=== PATIENT | male | born 1980 | race Caucasian/White ===

== ENCOUNTER 2016-07-02 10:11 | Inpatient (IN) | payer OTHER ==
[2016-07-02 12:07] VITALS: BMI 29.8
--- NOTE | 2016-07-02 14:42 | HP ---
COWS - Scale Resting Pulse: 0= [place] 80 or Below Sweatin=Flushed/Facial Moisture Restless Observation: 0= Sits Still Pupil Size: 0= Normal to Room Light Bone or Joint Aches: 2= Severe Diffuse Aches Runny Nose/ Eye Tearin= Constantly Teary/Runny GI Upset > 30mins: 0= None Tremor Observation: 2= Slight Tremor Visible Yawning Observation: 2= >3x During Session Anxiety or Irritability: 2=Irritable/Anxious Goose Flesh Skin: 0=Smooth Skin COWS Score: 14 Admission ROS S - HPI Chief Complaint: I am here to detox. Allergies/Adverse Reactions: Allergies Allergy/AdvReac Type Severity Reaction Status Date / Time No Known Allergies Allergy Verified 07/02/16 13:52 History of Present Illness: pt is a 35yr old male with a history of heroin dependence seeking detox for treatment. Exam Limitations: No Limitations - Ebola screening Have you traveled outside of the country in the last 21 days: No Have you had contact with anyone from an Ebola affected area: No Have you been sick,other than usual withdrawal symptoms: No Do you have a fever: No - Review of Systems Constitutional: Chills, Diaphoresis, Night Sweats, Changes in sleep EENT: reports: Tearing, Nose Congestion Respiratory: reports: No Symptoms reported Cardiac: reports: No Symptoms Reported GI: reports: Diarrhea, Poor Appetite, Poor Fluid Intake : reports: No Symptoms Reported Musculoskeletal: reports: Back Pain, Joint Pain Integumentary: reports: Flushing, Sweating Neuro: reports: Tingling, Tremors Endocrine: reports: Excessive Sweating, Flushing, Intolerance to Cold, Intolerance to Heat Hematology: reports: No Symptoms Reported Psychiatric: reports: No Sypmtoms Reported, Judgement Intact, Mood/Affect Appropiate, Orientated x3, Agitated, Anxious Other Systems: Reviewed and Negative Patient History - Patient Medical History Hx Anemia: No Hx Asthma: No Hx Chronic Obstructive Pulmonary Disease (COPD): No Hx Cancer: No Hx Cardiac Disorders: No Hx Congestive Heart Failure: No Hx Hypertension: No Hx Hypercholesterolemia: No Hx Pacemaker: No HX Cerebrovascular Accident: No Hx Seizures: No Hx Diabetes: No Hx Gastrointestinal Disorders: No Hx Liver Disease: No Hx Genitourinary Disorders: No Hx Sexually Transmitted Disorders: No Hx Renal Disease (ESRD): No Hx Thyroid Disease: No Hx Human Immunodeficiency Virus (HIV): No (negative) Hx Hepatitis C: No (negative) Hx Depression: No Hx Suicide Attempt: No (denies) Hx Bipolar Disorder: No Hx Schizophrenia: No Other Medical History: PTSD - Patient Surgical History Past Surgical History: No Hx Neurologic Surgery: No Hx Cataract Extraction: No Hx Cardiac Surgery: No Hx Lung Surgery: No Hx Breast Surgery: No Hx Breast Biopsy: No Hx Abdominal Surgery: No Hx Appendectomy: No Hx Cholecystectomy: No Hx Genitourinary Surgery: No Hx Section: No Hx Orthopedic Surgery: No Anesthesia Reaction: No - PPD History Previous Implant?: Yes Documented Results: Negative w/o proof Implanted On Prior R Admission?: No PPD to be Administered?: Yes - Reproductive History Patient is a Female of Child Bearing Age (11 -55 yrs old): No - Smoking Cessation Smoking history: Current every day smoker Have you smoked in the past 12 months: Yes Aproximately how many cigarettes per day: 20 Hx Chewing Tobacco Use: No Initiated information on smoking cessation: Yes 'Breaking Loose' booklet given: 07/02/16 - Substance & Tx. History Hx Alcohol Use: Yes Hx Substance Use: Yes Substance Use Type: Cocaine, Heroin Hx Substance Use Treatment: Yes - Substances Abused Heroin Route: Inhalation Frequency: Daily Amount used: 6-10 bags Age of first use: 34 Date of Last Use: 07/01/16 Cocaine Route: Inhalation Frequency: Daily Amount used: $20-40 Age of first use: 21 Date of Last Use: 07/01/16 Family Disease History - Family Disease History Family Disease History: [place]: Grandparent (uncle), Other: Grandparent Admission Physical Exam S - Vital Signs Vital Signs: Vital Signs - 24 hr 07/02/16 12:05 Temperature 98.3 F Pulse Rate 67 Respiratory 18 Rate Blood Pressure 124/71 - Physical General Appearance: Yes: Appropriately Dressed, Moderate Distress, Tremorous, Irritable, Sweating, Anxious HEENTM: Yes: Nasal Congestion, Rhinorrhea Respiratory: Yes: Lungs Clear, Normal Breath Sounds, No Respiratory Distress Neck: Yes: No masses,lesions,Nodules Breast: Yes: Within Normal Limits Cardiology: Yes: Regular Rhythm, Regular Rate, S1, S2 Abdominal: Yes: Normal Bowel Sounds, Non Tender Genitourinary: Yes: Within Normal Limits Back: Yes: Normal Inspection Musculoskeletal: Yes: Back pain Extremities: Yes: Tremors Neurological: Yes: Fully Oriented, Alert Integumentary: Yes: Normal Color, Diaphoresis Lymphatic: Yes: Within Normal Limits - Diagnostic (1) Opioid dependence with withdrawal Current Visit: Yes Status: Chronic (2) Nicotine dependence Current Visit: Yes Status: Chronic Qualifiers: Nicotine product type: cigarettes Substance use status: uncomplicated Qualified Code(s): F17.210 - Nicotine dependence, cigarettes, uncomplicated Cleared for Admission [facility] - Detox or Rehab [facility] Level of Care: Medically Managed Detox Regimen/Protocol: Methadone [facility] Breath Alcohol Content Breath Alcohol Content: 0 Urine Drug Screen - Results Drug Screen Negative: No Urine Drug Screen Results: THC-Marijuana, KATYA-Cocaine, OPI-Opiates
[2016-07-02] MEDS ORDERED: MAG HYDROX/AL HYDROX/SIMETH 30 ML UNIT-DOSE CUP PO PRN (14:51)
[2016-07-02] MEDS ORDERED: guaiFENesin/D-METHORPHAN HB 10 ML UNIT-DOSE CUPS PO PRN (14:51)
[2016-07-02] MEDS ORDERED: MENTHOL/PHENOL 1 EACH UD MM PRN (14:51)
[2016-07-02] MEDS ORDERED: ACETAMINOPHEN 325 MG TABLET (FP) PO PRN (14:51)
[2016-07-02] MEDS ORDERED: IBUPROFEN 400 MG TABLET (FP) PO PRN (14:51)
[2016-07-02] MEDS ORDERED: diphenhydrAMINE HCL 50 MG CAPSULE PO PRN (14:51)
[2016-07-02] MEDS ORDERED: MAGNESIUM CITRATE 300 ML BOTTLE PO PRN (14:51)
[2016-07-02] MEDS ORDERED: hydrOXYzine PAMOATE 50 MG CAPSULE (FP) PO PRN (14:51)
[2016-07-02] MEDS ORDERED: LOPERAMIDE HCL 2 MG CAPSULE PO PRN (14:51)
[2016-07-02] MEDS ORDERED: P-EPHED 60MG/TRIPROLIDI 2.5MG TABLET PO PRN (14:51)
[2016-07-02] MEDS ORDERED: MAGNESIUM HYDROX 2400MG/30ML ORAL SUSPENSION 30 ML CUP PO PRN (14:51)
[2016-07-02] MEDS ORDERED: METHADONE HCL 10 MG TABLET (FOR DETOX USE ONLY) PO ONE ×2 (15:30→23:00)
[2016-07-02] MEDS: diazePAM 5 MG TABLET PO PRN ×2 (15:33→20:18)
[2016-07-02] MEDS: NICOTINE POLACRILEX 4 MG GUM BC PRN (20:19)
[2016-07-02] MEDS ORDERED: THIAMINE HCL 100 MG TABLET (FP) PO SCH (22:00)
[2016-07-03] MEDS ORDERED: METHADONE HCL 10 MG TABLET (FOR DETOX USE ONLY) PO ONE (10:00)
[2016-07-03] MEDS ORDERED: PRENATAL VITAMINS W/ FOLIC ACID TABLET (FP) PO SCH (10:00)
[2016-07-03] MEDS ORDERED: NICOTINE 21 MG/24 HOURS TOPICAL PATCH TD SCH (10:00)
[2016-07-03 10:12] LABS: MCH 30.1 pg (25.7-33.7); MCHC 33.2 g/dl (32.0-35.9); MEAN CELL VOLUME 90.6 fl (80-96); MEAN PLT VOLUME 6.9 fl (7.5-11.1); PLATELET COUNT 673 K/MM3 (134-434); RDW 13.3 % (11.9-15.9); WHITE BLOOD COUNT 6.7 K/mm3 (4.0-10.0)
[2016-07-03] MEDS: diazePAM 5 MG TABLET PO PRN ×2 (10:43→14:47)
[2016-07-03 11:18] LABS: ANION GAP 8 (8-16); CO2 30 mmol/L (21-32); COCKROFT - GAULT 148.46; CREATININE 0.9 mg/dL (0.7-1.3); GLUCOSE,RANDOM 96 mg/dL (74-106)
[2016-07-03 11:19] LABS: ALBUMIN 4.1 g/dl (3.4-5.0); ALK PHOS 67 U/L (45-117); BILIRUBIN,TOTAL 0.3 mg/dL (0.2-1.0); CALCIUM 9.6 mg/dL (8.5-10.1); SGOT/AST 13 U/L (15-37); SGPT/ALT 28 U/L (12-78); TOT PROT 7.4 g/dl (6.4-8.2)
--- NOTE | 2016-07-03 11:46 | EKG ---
Test Reason : Blood Pressure : / mmHG Vent. Rate : 075 BPM Atrial Rate : 075 BPM P-R Int : 148 ms QRS Dur : 096 ms QT Int : 392 ms P-R-T Axes : 050 035 031 degrees QTc Int : 437 ms NORMAL SINUS RHYTHM WITH SINUS ARRHYTHMIA NORMAL ECG NO PREVIOUS ECGS AVAILABLE Confirmed by MIKE MASON MD ([id number]) on 07/03/2016 11:45:31 AM Referred By: Confirmed By:MIKE MASON MD
--- NOTE | 2016-07-03 12:08 | PN ---
S COWS - Scale Resting Pulse: 0= [place] 80 or Below Sweatin= Chills/Flushing Restless Observation: 3= Extraneous Movement Pupil Size: 1= Pupils >than Normal Bone or Joint Aches: 2= Severe Diffuse Aches Runny Nose/ Eye Tearin= Runny Nose/Eyes GI Upset > 30mins: 3= Vomiting/Diarrhea Tremor Observation of Outstretched Hands: 2= Slight Tremor Visible Yawning Observation: 1= 1-2x During Session Anxiety or Irritability: 2=Irritable/Anxious Goose Flesh Skin: 0=Smooth Skin COWS Score: 17 S Progress Note (SOAP) Subjective: ALERT,IRRITABLE,ANXIOUS,INTERRUPTED SLEEP,PAIN IN THE BODY AND BACK,TREMOR Objective: 07/03/16 12:06 Vital Signs Temperature 96.9 F L 07/03/16 10:28 Pulse Rate 57 L 07/03/16 10:28 Respiratory Rate 16 07/03/16 10:28 Blood Pressure 123/73 07/03/16 10:28 O2 Sat by Pulse Oximetry (%) 07/03/16 12:07 EKG NSR,SINUS ARRHYTHMIA 07/03/16 12:07 Laboratory Last Values WBC 6.7 K/mm3 (4.0-10.0) 07/03/16 06:00 RBC 4.54 M/mm3 (4.00-5.60) 07/03/16 06:00 Hgb 13.7 GM/dL (11.7-16.9) 07/03/16 06:00 Hct 41.2 % (35.4-49) 07/03/16 06:00 MCV 90.6 fl (80-96) 07/03/16 06:00 MCHC 33.2 g/dl (32.0-35.9) 07/03/16 06:00 RDW 13.3 % (11.9-15.9) 07/03/16 06:00 Plt Count 673 K/MM3 (134-434) H 07/03/16 06:00 MPV 6.9 fl (7.5-11.1) L 07/03/16 06:00 Sodium 141 mmol/L (136-145) 07/03/16 06:00 Potassium 4.5 mmol/L (3.5-5.1) 07/03/16 06:00 Chloride 103 mmol/L (98-107) 07/03/16 06:00 Carbon Dioxide 30 mmol/L (21-32) 07/03/16 06:00 Anion Gap 8 (8-16) 07/03/16 06:00 BUN 11 mg/dL (7-18) 07/03/16 06:00 Creatinine 0.9 mg/dL (0.7-1.3) 07/03/16 06:00 Creat Clearance w eGFR > 60 (>60) 07/03/16 06:00 Random Glucose 96 mg/dL (74-106) 07/03/16 06:00 Calcium 9.6 mg/dL (8.5-10.1) 07/03/16 06:00 Total Bilirubin 0.3 mg/dL (0.2-1.0) 07/03/16 06:00 AST 13 U/L (15-37) L 07/03/16 06:00 ALT 28 U/L (12-78) 07/03/16 06:00 Alkaline Phosphatase 67 U/L (45-117) 07/03/16 06:00 Total Protein 7.4 g/dl (6.4-8.2) 07/03/16 06:00 Albumin 4.1 g/dl (3.4-5.0) 07/03/16 06:00 RPR Titer Nonreactive (NONREACTIVE) 07/03/16 06:00 Assessment: 07/03/16 12:08 WITHDRAWAL SYMPTOM Plan: CONTINUE DETOX
--- NOTE | 2016-07-03 13:22 | CONSULT ---
[facility] Psychiatric Consult - Data Date of interview: 07/03/16 Admission source: [facility] Identifying data: First admission to [facility] for this 35 y/o male seeking detox treatment for alcohol,heroin,cocaine and marijuana dependence.Patient is ,a father of one,domiciled and currently employed. Substance Abuse History: - Smoking Cessation. Smoking history: Current every day smoker. Have you smoked in the past 12 months: Yes. Aproximately how many cigarettes per day: 20. Hx Chewing Tobacco Use: No. Initiated information on smoking cessation: Yes. 'Breaking Loose' booklet given: 07/02/16. - Substance & Tx. History. Hx Alcohol Use: Yes. Hx Substance Use: Yes. Substance Use Type : Cocaine, Heroin. Hx Substance Use Treatment: Yes. - Substances Abused. Heroin. Route: Inhalation. Frequency: Daily. Amount used: 6-10 bags. Age of first use: 34. Date of Last Use: 07/01/16. Cocaine. Route: Inhalation. Frequency: Daily. Amount used: $20-40. Age of first use: 21. Date of Last Use : 07/01/16. Confirmed by patient. Medical History: History of gallstones and fracture of mandibles ( during combat in [place]). Psychiatric History: No reported history of psychiatric hospitalizations.Patient states that he was diagnosed with PTSD and treated with a combination of wellbutrin + adderall.Mr Galvan indicates that he stopped psychiatric OPD care ([facility] in [facility] in 2011.Never got back on psychotropic drugs.Patient denies history of suicide attempts. Physical/Sexual Abuse/Trauma History: Patient denies history of abuse.Served with the [employer] in [place] and [place] for 8 years.Left the in 2011.Wounded in combat.Traumatized by his war memories (nightmares and flashbacks). Additional Comment: Urine Drug Screen Results: THC-Marijuana, KATYA-Cocaine, OPI- Opiates.Noted. Mental Status Exam - Mental Status Exam Alert and Oriented to: Time, Place, Person Cognitive Function: Good Patient Appearance: Well Groomed (tattoo on right arm) Mood: Hopeful, Euthymic Affect: Appropriate, Normal Range Patient Behavior: Fatigued, Appropriate, Cooperative Speech Pattern: Clear Voice Loudness: Normal Thought Process: Goal Oriented Thought Disorder: Not Present Hallucinations: Denies Suicidal Ideation: Denies Homicidal Ideation: Denies Insight/Judgement: Poor Sleep: Poorly, Difficulty falling asleep (wants seroquel) Appetite: Good Muscle strength/Tone: Normal Gait/Station: Normal Psychiatric Findings - Problem List ([place] 1, 2,3) (1) Opioid dependence with withdrawal Current Visit: Yes Status: Acute (2) Nicotine dependence Current Visit: Yes Status: Acute Qualifiers: Nicotine product type: cigarettes Substance use status: uncomplicated Qualified Code(s): F17.210 - Nicotine dependence, cigarettes, uncomplicated (3) Cocaine dependence Current Visit: Yes Status: Acute (4) Marijuana dependence Current Visit: Yes Status: Acute (5) Alcohol abuse Current Visit: Yes Status: Acute (6) Insomnia Current Visit: Yes Status: Acute - Initial Treatment Plan Initial Treatment Plan: Psychoeducation.Detoxification in progress.Seroquel ( patient's choice) 50 mg po hs.Side effects/benefits discussed with the patient.He is in agreement with this careplan.Observation.
[2016-07-03 13:35] VITALS: BP 126/83; PULSE 60; TEMP 97.5
[2016-07-03] MEDS: NICOTINE POLACRILEX 4 MG GUM BC PRN (14:20)
[2016-07-03 14:45] LABS: URINE APPEARANCE CLEAR; URINE BILIRUBIN NEGATIVE (NEGATIVE); URINE BLOOD NEGATIVE (NEGATIVE); URINE COLOR LTYELLOW; URINE GLUCOSE (UA) NEGATIVE (NEGATIVE); URINE KETONE NEGATIVE (NEGATIVE); URINE LEUK ESTERASE NEGATIVE (NEGATIVE); URINE NITRITE NEGATIVE (NEGATIVE); URINE PROTEIN NEGATIVE (NEGATIVE); URINE UROBILINOGEN NEGATIVE E.U./dl (0.2-1.0)
--- NOTE | 2016-07-03 16:21 | PN ---
[facility] Progress Note Note: ADDENDUM PATIENT DID NOT WANT TO COMPLETE TREATMENT,SEEN BY COUNSELOR,STATED HE HAS TO GO TO WORK, SIGNED RELEASE AMA,DID NOT WANT TO WAIT
--- NOTE | 2016-07-03 16:27 | DS ---
[facility] Detox Discharge Summary Admission Date: 07/02/16 Discharge Date: 07/03/16 - History Present History: Cocaine Dependence, Opioid Dependence Additional Comments: PATIENT DID NOT WANT TO COMPLETE TREATMENT,SEEN BY COUNSELOR,STATED HE HAS TO GO TO WORK,SIGNED RELEASE AMA,DID NOT WANT TO WAIT Pertinent Past History: NICOTINE DEPENDENCE - Physical Exam Results Vital Signs: Vital Signs Temperature 97.5 F L 07/03/16 13:34 Pulse Rate 60 07/03/16 13:34 Respiratory Rate 18 07/03/16 13:34 Blood Pressure 126/83 07/03/16 13:34 O2 Sat by Pulse Oximetry (%) Pertinent Admission Physical Exam Findings: WITHDRAWAL SYMPTOM - Medication Discharge Medications: Ambulatory Orders Quetiapine Fumarate [Seroquel -] 50 mg PO HS #30 tablet 07/03/16 - AMA Did Patient Leave Against Medical Advice: Yes
[2016-07-03] MEDS ORDERED: QUEtiapine FUMARATE 50 MG TABLET PO SCH (22:00)
[2016-07-04] MEDS ORDERED: METHADONE HCL 5 MG TABLET (FOR DETOX USE ONLY) PO ONE (10:00)
[2016-07-05] MEDS ORDERED: METHADONE HCL 5 MG TABLET (FOR DETOX USE ONLY) PO ONE (10:00)
[2016-07-06] MEDS ORDERED: METHADONE HCL 10 MG TABLET (FOR DETOX USE ONLY) PO ONE (10:00)
[2016-07-07] MEDS ORDERED: METHADONE HCL 5 MG TABLET (FOR DETOX USE ONLY) PO ONE (06:00)
== END 2016-07-03 16:20 | disposition left against medical advice (07) | DRG 770 ==
LOC: YASAS 10:11 → Y6N 14:52
PROVIDERS: ADMIT Internal Medicine; ATTEND Internal Medicine
PROC: HZ2ZZZZ Detoxification Services for Substance Abuse Treatment (ICD-10-PCS; principal; 2016-07-02)
DX: F11.23 Opioid dependence with withdrawal (principal); F14.20 Cocaine dependence, uncomplicated; F12.20 Cannabis dependence, uncomplicated; F17.210 Nicotine dependence, cigarettes, uncomplicated; G47.00 Insomnia, unspecified; I49.9 Cardiac arrhythmia, unspecified
CPT/HCPCS: 36415; 80053; 81003; 85027; 86593; 93005; 93010

== ENCOUNTER 2016-09-27 08:31 | Inpatient (IN) | payer OTHER ==
[2016-09-27 09:16] VITALS: BMI 30.2
--- NOTE | 2016-09-27 13:02 | HP ---
COWS - Scale Resting Pulse: 0= [place] 80 or Below Sweatin=Flushed/Facial Moisture Restless Observation: 1= Difficult to Sit Still Pupil Size: 0= Normal to Room Light Bone or Joint Aches: 2= Severe Diffuse Aches Runny Nose/ Eye Tearin= Runny Nose/Eyes GI Upset > 30mins: 2= Nausea/Diarrhea Tremor Observation: 2= Slight Tremor Visible Yawning Observation: 1= 1-2x During Session Anxiety or Irritability: 2=Irritable/Anxious Goose Flesh Skin: 3=Piloerection COWS Score: 17 Admission ROS S - HPI Chief Complaint: I am here to get cleaned. Allergies/Adverse Reactions: Allergies Allergy/AdvReac Type Severity Reaction Status Date / Time No Known Allergies Allergy Verified 09/27/16 09:57 History of Present Illness: pt is a 35yr old male with a history of heroin and cocaine dependence seeking detox for treatment. Exam Limitations: No Limitations - Ebola screening Have you traveled outside of the country in the last 21 days: No Have you had contact with anyone from an Ebola affected area: No Have you been sick,other than usual withdrawal symptoms: No Do you have a fever: No - Review of Systems Constitutional: Chills, Diaphoresis, Night Sweats, Changes in sleep EENT: reports: Tearing, Nose Congestion Respiratory: reports: No Symptoms reported Cardiac: reports: No Symptoms Reported GI: reports: Diarrhea, Poor Appetite, Poor Fluid Intake : reports: No Symptoms Reported Musculoskeletal: reports: Muscle Pain Integumentary: reports: Flushing, Sweating Neuro: reports: Tingling, Tremors Endocrine: reports: Excessive Sweating, Flushing, Intolerance to Cold, Intolerance to Heat Hematology: reports: No Symptoms Reported Psychiatric: reports: Judgement Intact, Mood/Affect Appropiate, Orientated x3, Agitated, Anxious Other Systems: Reviewed and Negative Patient History - Patient Medical History Hx Anemia: No Hx Asthma: No Hx Chronic Obstructive Pulmonary Disease (COPD): No Hx Cancer: No Hx Cardiac Disorders: No Hx Congestive Heart Failure: No Hx Hypertension: No Hx Hypercholesterolemia: No Hx Pacemaker: No HX Cerebrovascular Accident: No Hx Seizures: No Hx Dementia: No Hx Diabetes: No Hx Gastrointestinal Disorders: No Hx Liver Disease: No Hx Genitourinary Disorders: No Hx Sexually Transmitted Disorders: No Hx Renal Disease (ESRD): No Hx Thyroid Disease: No Hx Human Immunodeficiency Virus (HIV): No (negative) Hx Hepatitis C: No (negative) Hx Depression: No Hx Suicide Attempt: No (denies) Hx Bipolar Disorder: No Hx Schizophrenia: No - Patient Surgical History Past Surgical History: No Hx Neurologic Surgery: No Hx Cataract Extraction: No Hx Cardiac Surgery: No Hx Lung Surgery: No Hx Breast Surgery: No Hx Breast Biopsy: No Hx Abdominal Surgery: No Hx Appendectomy: No Hx Cholecystectomy: No Hx Genitourinary Surgery: No Hx Section: No Hx Orthopedic Surgery: No Anesthesia Reaction: No - PPD History Previous Implant?: Yes Documented Results: Negative w/proof Implanted On Prior [facility] Admission?: Yes PPD to be Administered?: Yes - Reproductive History Patient is a Female of Child Bearing Age (11 -55 yrs old): No - Smoking Cessation Smoking history: Current every day smoker Have you smoked in the past 12 months: Yes Aproximately how many cigarettes per day: 20 Hx Chewing Tobacco Use: No Initiated information on smoking cessation: Yes 'Breaking Loose' booklet given: 09/27/16 - Substance & Tx. History Hx Alcohol Use: No Hx Substance Use: Yes Substance Use Type: Cocaine, Heroin, Marijuana Hx Substance Use Treatment: Yes (last detox at [facility] 02/2016) - Substances Abused Heroin Route: Inhalation Frequency: Daily Amount used: 5 BAGS Age of first use: 34 Date of Last Use: 09/26/16 Cocaine Route: Inhalation Frequency: 1-2 times per week Amount used: 1 GRAM Age of first use: 21 Date of Last Use: 09/26/16 Marijuana/Hashish Route: Smoking Frequency: 1-3 times last 30 days Amount used: 1 JOINT Age of first use: 13 Date of Last Use: 09/26/16 Family Disease History - Family Disease History Family Disease History: [place]: Grandparent (uncle), Other: Grandparent Admission Physical Exam B[facility] - Vital Signs Vital Signs: Vital Signs - 24 hr 09/27/16 09:13 Temperature 97.1 F L Pulse Rate 69 Respiratory 20 Rate Blood Pressure 120/78 - Physical General Appearance: Yes: Appropriately Dressed, Moderate Distress, Tremorous, Irritable, Sweating, Anxious HEENTM: Yes: Normal Voice, Nasal Congestion, Rhinorrhea Respiratory: Yes: Lungs Clear, Normal Breath Sounds, No Respiratory Distress Neck: Yes: No masses,lesions,Nodules Breast: Yes: Within Normal Limits Cardiology: Yes: Regular Rhythm, Regular Rate, S1, S2 Abdominal: Yes: Normal Bowel Sounds, Non Tender Genitourinary: Yes: Within Normal Limits Back: Yes: Normal Inspection Musculoskeletal: Yes: full range of Motion, Gait Steady, Back pain Extremities: Yes: Normal Capillary Refill, Normal Inspection, Non-Tender, Tremors Neurological: Yes: Fully Oriented, Alert, Normal Response Integumentary: Yes: Normal Color, Diaphoresis Lymphatic: Yes: Within Normal Limits - Diagnostic (1) Cocaine dependence Current Visit: Yes Status: Chronic Qualifiers: Substance use status: uncomplicated Qualified Code(s): F14.20 - Cocaine dependence, uncomplicated (2) Insomnia Current Visit: No Status: Acute (3) Marijuana dependence Current Visit: Yes Status: Chronic (4) Nicotine dependence Current Visit: Yes Status: Chronic Qualifiers: Nicotine product type: cigarettes Substance use status: uncomplicated Qualified Code(s): F17.210 - Nicotine dependence, cigarettes, uncomplicated (5) Opioid dependence with withdrawal Current Visit: Yes Status: Chronic Cleared for Admission [facility] - Detox or Rehab [facility] Level of Care: Medically Managed Detox Regimen/Protocol: Methadone [facility] Breath Alcohol Content Breath Alcohol Content: 0 Urine Drug Screen - Results Drug Screen Negative: No Urine Drug Screen Results: THC-Marijuana, KATYA-Cocaine, OPI-Opiates
[2016-09-27] MEDS ORDERED: LOPERAMIDE HCL 2 MG CAPSULE PO PRN (13:04)
[2016-09-27] MEDS ORDERED: MAGNESIUM HYDROX 2400MG/30ML ORAL SUSPENSION 30 ML CUP PO PRN (13:04)
[2016-09-27] MEDS ORDERED: MAGNESIUM CITRATE 300 ML BOTTLE PO PRN (13:04)
[2016-09-27] MEDS ORDERED: guaiFENesin/D-METHORPHAN HB 10 ML UNIT-DOSE CUPS PO PRN (13:04)
[2016-09-27] MEDS ORDERED: MENTHOL/PHENOL 1 EACH UD MM PRN (13:04)
[2016-09-27] MEDS ORDERED: ACETAMINOPHEN 325 MG TABLET (FP) PO PRN (13:04)
[2016-09-27] MEDS ORDERED: MAG HYDROX/AL HYDROX/SIMETH 30 ML UNIT-DOSE CUP PO PRN (13:04)
[2016-09-27] MEDS ORDERED: P-EPHED 60MG/TRIPROLIDI 2.5MG TABLET PO PRN (13:04)
[2016-09-27] MEDS ORDERED: METHADONE HCL 10 MG TABLET (FOR DETOX USE ONLY) PO ONE ×2 (13:52→23:00)
[2016-09-27] MEDS: diazePAM 5 MG TABLET PO PRN ×2 (14:33→19:21)
[2016-09-27] MEDS: NICOTINE POLACRILEX 4 MG GUM BUC PRN ×2 (14:38→19:21)
[2016-09-27 17:22] LABS: MCH 31.4 pg (25.7-33.7); MCHC 34.7 g/dl (32.0-35.9); MEAN CELL VOLUME 90.3 fl (80-96); MEAN PLT VOLUME 7.3 fl (7.5-11.1); PLATELET COUNT 399 K/MM3 (134-434); RDW 14.4 % (11.9-15.9); WHITE BLOOD COUNT 6.2 K/mm3 (4.0-10.0)
[2016-09-27 17:26] LABS: PH,URINE 5.5 (5.0-8.0); URINE APPEARANCE CLEAR; URINE BILIRUBIN NEGATIVE (NEGATIVE); URINE BLOOD NEGATIVE (NEGATIVE); URINE COLOR LT. YELLOW; URINE GLUCOSE (UA) NEGATIVE (NEGATIVE); URINE KETONE NEGATIVE (NEGATIVE); URINE LEUK ESTERASE NEGATIVE (NEGATIVE); URINE NITRITE NEGATIVE (NEGATIVE); URINE PROTEIN NEGATIVE (NEGATIVE); URINE UROBILINOGEN 0.2 mg/dL (0.2-1.0)
[2016-09-27 17:42] LABS: ALBUMIN 4.2 g/dl (3.4-5.0); ALK PHOS 55 U/L (45-117); ANION GAP 5 (8-16); BILIRUBIN,TOTAL 0.5 mg/dL (0.2-1.0); CALCIUM 9.3 mg/dL (8.5-10.1); CO2 31 mmol/L (21-32); CREATININE 0.8 mg/dL (0.7-1.3); GLUCOSE,RANDOM 94 mg/dL (74-106); SGPT/ALT 19 U/L (12-78); TOT PROT 6.6 g/dl (6.4-8.2)
[2016-09-27 17:45] LABS: SGOT/AST 3 U/L (15-37)
[2016-09-27] MEDS: THIAMINE HCL 100 MG TABLET (FP) PO SCH (22:38)
[2016-09-27] MEDS: diphenhydrAMINE HCL 50 MG CAPSULE PO PRN (22:38)
[2016-09-28] MEDS ORDERED: METHADONE HCL 10 MG TABLET (FOR DETOX USE ONLY) PO ONE (10:00)
--- NOTE | 2016-09-28 10:32 | EKG ---
Test Reason : Blood Pressure : / mmHG Vent. Rate : 051 BPM Atrial Rate : 051 BPM P-R Int : 158 ms QRS Dur : 086 ms QT Int : 410 ms P-R-T Axes : 037 026 017 degrees QTc Int : 377 ms SINUS BRADYCARDIA OTHERWISE NORMAL ECG WHEN COMPARED WITH ECG OF 02-JUL-2016 14:43, QT HAS SHORTENED Confirmed by ALISHA CORREA MD ([id number]) on 09/28/2016 10:32:18 AM Referred By: Confirmed By:ALISHA CORREA MD
[2016-09-28] MEDS: PRENATAL VITAMINS W/ FOLIC ACID TABLET (FP) PO SCH (11:07)
[2016-09-28] MEDS: diazePAM 5 MG TABLET PO PRN ×3 (11:09→21:35)
[2016-09-28] MEDS: NICOTINE POLACRILEX 4 MG GUM BUC PRN (11:09)
[2016-09-28] MEDS: NICOTINE 21 MG/24 HOURS TOPICAL PATCH TD SCH (11:10)
--- NOTE | 2016-09-28 11:36 | PN ---
[facility] COWS - Scale Resting Pulse: 0= [place] 80 or Below Sweatin=Flushed/Facial Moisture Restless Observation: 1= Difficult to Sit Still Pupil Size: 0= Normal to Room Light Bone or Joint Aches: 2= Severe Diffuse Aches Runny Nose/ Eye Tearin= Runny Nose/Eyes GI Upset > 30mins: 1= Stomach Cramp Tremor Observation of Outstretched Hands: 2= Slight Tremor Visible Yawning Observation: 2= >3x During Session Anxiety or Irritability: 2=Irritable/Anxious Goose Flesh Skin: 0=Smooth Skin COWS Score: 14 S Progress Note (SOAP) Subjective: chills sweats shakes interrupted sleep agitation Objective: 09/28/16 11:35 Vital Signs Temperature 97.9 F 09/28/16 10:00 Pulse Rate 58 L 09/28/16 10:00 Respiratory Rate 20 09/28/16 10:00 Blood Pressure 124/77 09/28/16 10:00 O2 Sat by Pulse Oximetry (%) Laboratory Tests 09/27/16 09/27/16 09/27/16 14:00 14:00 14:00 WBC 6.2 RBC 4.07 Hgb 12.8 Hct 36.8 MCV 90.3 MCH 31.4 MCHC 34.7 RDW 14.4 Plt Count 399 D MPV 7.3 L Sodium 142 Potassium 4.0 Chloride 106 Carbon Dioxide 31 Anion Gap 5 L BUN 17 D Creatinine 0.8 Creat Clearance w eGFR > 60 Random Glucose 94 Calcium 9.3 Total Bilirubin 0.5 D AST 3 L D ALT 19 D Alkaline Phosphatase 55 Total Protein 6.6 Albumin 4.2 Urine Color Lt. yellow Urine Appearance Clear Urine pH 5.5 Ur Specific [place] >= 1.030 H Urine Protein Negative Urine Glucose (UA) Negative Urine Ketones Negative Urine Blood Negative Urine Nitrite Negative Urine Bilirubin Negative Urine Urobilinogen 0.2 Ur Leukocyte Esterase Negative RPR Titer 09/27/16 14:00 WBC RBC Hgb Hct MCV MCH MCHC RDW Plt Count MPV Sodium Potassium Chloride Carbon Dioxide Anion Gap BUN Creatinine Creat Clearance w eGFR Random Glucose Calcium Total Bilirubin AST ALT Alkaline Phosphatase Total Protein Albumin Urine Color Urine Appearance Urine pH Ur Specific [place] Urine Protein Urine Glucose (UA) Urine Ketones Urine Blood Urine Nitrite Urine Bilirubin Urine Urobilinogen Ur Leukocyte Esterase RPR Titer Nonreactive awake/alert ambulating no acute distress Assessment: 09/28/16 11:36 withdrawal sx Plan: continue detox increase fluids
[2016-09-28] MEDS: hydrOXYzine PAMOATE 50 MG CAPSULE (FP) PO PRN (13:49)
[2016-09-28] MEDS: THIAMINE HCL 100 MG TABLET (FP) PO SCH (21:35)
[2016-09-28] MEDS: diphenhydrAMINE HCL 50 MG CAPSULE PO PRN (21:36)
[2016-09-29] MEDS: diazePAM 5 MG TABLET PO PRN ×4 (09:15→22:19)
[2016-09-29] MEDS ORDERED: METHADONE HCL 5 MG TABLET (FOR DETOX USE ONLY) PO ONE (10:00)
[2016-09-29] MEDS: PRENATAL VITAMINS W/ FOLIC ACID TABLET (FP) PO SCH (10:19)
[2016-09-29] MEDS: NICOTINE POLACRILEX 4 MG GUM BUC PRN (10:20)
[2016-09-29] MEDS: NICOTINE 21 MG/24 HOURS TOPICAL PATCH TD SCH (10:20)
[2016-09-29] MEDS: hydrOXYzine PAMOATE 50 MG CAPSULE (FP) PO PRN ×2 (11:02→19:45)
--- NOTE | 2016-09-29 14:00 | PN ---
[facility] COWS - Scale Resting Pulse: 0= [place] 80 or Below Sweatin= Chills/Flushing Restless Observation: 3= Extraneous Movement Pupil Size: 1= Pupils >than Normal Bone or Joint Aches: 2= Severe Diffuse Aches Runny Nose/ Eye Tearin= Nasal Congestion GI Upset > 30mins: 2= Nausea/Diarrhea Tremor Observation of Outstretched Hands: 2= Slight Tremor Visible Yawning Observation: 1= 1-2x During Session Anxiety or Irritability: 2=Irritable/Anxious Goose Flesh Skin: 0=Smooth Skin COWS Score: 15 BHS Progress Note (SOAP) Subjective: alert,irritable,anxious,interrupted sleep,pain in the body and back Objective: 09/29/16 13:58 Vital Signs Temperature 97.7 F 09/29/16 09:57 Pulse Rate 67 09/29/16 09:57 Respiratory Rate 18 09/29/16 09:57 Blood Pressure 119/86 09/29/16 09:57 O2 Sat by Pulse Oximetry (%) ekg sinus bradycardia 51/min no chest pain,no sob,no dizziness 09/29/16 13:59 Laboratory Last Values WBC 6.2 K/mm3 (4.0-10.0) 09/27/16 14:00 RBC 4.07 M/mm3 (4.00-5.60) 09/27/16 14:00 Hgb 12.8 GM/dL (11.7-16.9) 09/27/16 14:00 Hct 36.8 % (35.4-49) 09/27/16 14:00 MCV 90.3 fl (80-96) 09/27/16 14:00 MCH 31.4 pg (25.7-33.7) 09/27/16 14:00 MCHC 34.7 g/dl (32.0-35.9) 09/27/16 14:00 RDW 14.4 % (11.9-15.9) 09/27/16 14:00 Plt Count 399 K/MM3 (134-434) D 09/27/16 14:00 MPV 7.3 fl (7.5-11.1) L 09/27/16 14:00 Sodium 142 mmol/L (136-145) 09/27/16 14:00 Potassium 4.0 mmol/L (3.5-5.1) 09/27/16 14:00 Chloride 106 mmol/L (98-107) 09/27/16 14:00 Carbon Dioxide 31 mmol/L (21-32) 09/27/16 14:00 Anion Gap 5 (8-16) L 09/27/16 14:00 BUN 17 mg/dL (7-18) D 09/27/16 14:00 Creatinine 0.8 mg/dL (0.7-1.3) 09/27/16 14:00 Creat Clearance w eGFR > 60 (>60) 09/27/16 14:00 Random Glucose 94 mg/dL (74-106) 09/27/16 14:00 Calcium 9.3 mg/dL (8.5-10.1) 09/27/16 14:00 Total Bilirubin 0.5 mg/dL (0.2-1.0) D 09/27/16 14:00 AST 3 U/L (15-37) L D 09/27/16 14:00 ALT 19 U/L (12-78) D 09/27/16 14:00 Alkaline Phosphatase 55 U/L (45-117) 09/27/16 14:00 Total Protein 6.6 g/dl (6.4-8.2) 09/27/16 14:00 Albumin 4.2 g/dl (3.4-5.0) 09/27/16 14:00 Urine Color Lt. yellow 09/27/16 14:00 Urine Appearance Clear 09/27/16 14:00 Urine pH 5.5 (5.0-8.0) 09/27/16 14:00 Ur Specific [place] >= 1.030 (1.005-1.025) H 09/27/16 14:00 Urine Protein Negative (NEGATIVE) 09/27/16 14:00 Urine Glucose (UA) Negative (NEGATIVE) 09/27/16 14:00 Urine Ketones Negative (NEGATIVE) 09/27/16 14:00 Urine Blood Negative (NEGATIVE) 09/27/16 14:00 Urine Nitrite Negative (NEGATIVE) 09/27/16 14:00 Urine Bilirubin Negative (NEGATIVE) 09/27/16 14:00 Urine Urobilinogen 0.2 mg/dL (0.2-1.0) 09/27/16 14:00 Ur Leukocyte Esterase Negative (NEGATIVE) 09/27/16 14:00 RPR Titer Nonreactive (NONREACTIVE) 09/27/16 14:00 Assessment: 09/29/16 13:59 withdrawal symptom Plan: continue detox
[2016-09-29] MEDS: THIAMINE HCL 100 MG TABLET (FP) PO SCH (22:19)
[2016-09-29] MEDS: diphenhydrAMINE HCL 50 MG CAPSULE PO PRN (22:19)
[2016-09-29] MEDS: IBUPROFEN 400 MG TABLET (FP) PO PRN (23:08)
[2016-09-30] MEDS: diazePAM 5 MG TABLET PO PRN ×2 (05:47→10:13)
[2016-09-30] MEDS ORDERED: METHADONE HCL 5 MG TABLET (FOR DETOX USE ONLY) PO ONE (10:00)
[2016-09-30] MEDS: PRENATAL VITAMINS W/ FOLIC ACID TABLET (FP) PO SCH (10:13)
[2016-09-30] MEDS: NICOTINE POLACRILEX 4 MG GUM BUC PRN ×2 (10:14→18:33)
[2016-09-30] MEDS: NICOTINE 21 MG/24 HOURS TOPICAL PATCH TD SCH (10:14)
--- NOTE | 2016-09-30 10:27 | PN ---
S Progress Note (SOAP) Subjective: ALERT,IRRITABLE,ANXIOUS,INTERRUPTED SLEEP,PAIN IN THE BODY AND BACK Objective: 09/30/16 10:25 Vital Signs Temperature 98.1 F 09/30/16 06:25 Pulse Rate 59 L 09/30/16 06:25 Respiratory Rate 16 09/30/16 06:25 Blood Pressure 102/58 09/30/16 06:25 O2 Sat by Pulse Oximetry (%) Assessment: 09/30/16 10:26 WITHDRAWAL SYMPTOM Plan: CONTINUE DETOX,MEDICATION ADJUSTED,DISCHARGE IN AM AT 0700
[2016-09-30] MEDS: IBUPROFEN 400 MG TABLET (FP) PO PRN ×2 (12:27→22:14)
[2016-09-30] MEDS: hydrOXYzine PAMOATE 50 MG CAPSULE (FP) PO PRN (18:32)
[2016-09-30] MEDS: THIAMINE HCL 100 MG TABLET (FP) PO SCH (22:14)
[2016-09-30] MEDS: diphenhydrAMINE HCL 50 MG CAPSULE PO PRN (22:14)
[2016-10-01] MEDS ORDERED: METHADONE HCL 5 MG TABLET (FOR DETOX USE ONLY) PO ONE (06:00)
[2016-10-01 06:54] VITALS: BP 119/74; PULSE 68; TEMP 96.8
--- NOTE | 2016-10-01 08:16 | DS ---
[facility] Detox Discharge Summary Admission Date: 09/27/16 Discharge Date: 10/01/16 - History Present History: Cocaine Dependence, Opioid Dependence, Sedative Dependence Additional Comments: FOLLOW UP WITH AFTER CARE PROGRAM ARRANGEMENT Pertinent Past History: INSOMNIA NICOTINE DEPENDENCE CHOLELITHIASIS - Physical Exam Results Vital Signs: Vital Signs Temperature 96.8 F L 10/01/16 06:54 Pulse Rate 68 10/01/16 06:54 Respiratory Rate 16 10/01/16 06:54 Blood Pressure 119/74 10/01/16 06:54 O2 Sat by Pulse Oximetry (%) - Treatment Hospital Course: Detox Protocol Followed, Detoxed Safely, Responded well, Discharged Condition Good Patient has Accepted a Rehab Referral to: DECLINED - Medication Discharge Medications: Ambulatory Orders NK [No Known Home Medication] 09/27/16 - Diagnosis (1) Cholelithiasis Status: Acute (2) Insomnia Status: Acute (3) Cocaine dependence Status: Chronic Qualifiers: Substance use status: uncomplicated Qualified Code(s): F14.20 - Cocaine dependence, uncomplicated (4) Marijuana dependence Status: Chronic (5) Opioid dependence with withdrawal Status: Chronic - AMA Did Patient Leave Against Medical Advice: No
[2016-10-01] MEDS ORDERED: METHADONE HCL 10 MG TABLET (FOR DETOX USE ONLY) PO ONE (10:00)
[2016-10-02] MEDS ORDERED: METHADONE HCL 5 MG TABLET (FOR DETOX USE ONLY) PO ONE (06:00)
== END 2016-10-01 06:35 | disposition home or self-care (01) | DRG 773 ==
LOC: YASAS 08:31 → Y6N 13:18
PROVIDERS: ADMIT Internal Medicine; ATTEND Internal Medicine
PROC: HZ2ZZZZ Detoxification Services for Substance Abuse Treatment (ICD-10-PCS; principal; 2016-09-27)
DX: F11.23 Opioid dependence with withdrawal (principal); F14.20 Cocaine dependence, uncomplicated; F12.20 Cannabis dependence, uncomplicated; F17.210 Nicotine dependence, cigarettes, uncomplicated; G47.00 Insomnia, unspecified; R00.1 Bradycardia, unspecified; K80.20 Calculus of gallbladder without cholecystitis without obstruction
CPT/HCPCS: 36415; 80053; 81003; 85027; 86593; 93005; 93010

== ENCOUNTER 2016-10-02 10:59 | Inpatient (IN) | payer OTHER ==
[2016-10-02 12:18] VITALS: BMI 30.1
--- NOTE | 2016-10-02 13:53 | HP ---
LISA ARANDA Rehab Assess/Revision - Admission History Admitted to Rehab from: [facility] Date of Admission to Rehab: 10/02/16 - Vital signs Vital Signs: Vital Signs Period Temp Pulse Resp BP Sys/Jaramillo Pulse Ox Last 24 Hr 96.1 F 90 18 128/79 - Findings Detox History & Physical reviewed: Yes Concur with findings: Yes Comments/Additional Findings: for rehab as protocol
[2016-10-02] MEDS ORDERED: LOPERAMIDE HCL 2 MG CAPSULE PO PRN (13:54)
[2016-10-02] MEDS ORDERED: MENTHOL/PHENOL 1 EACH UD MM PRN (13:54)
[2016-10-02] MEDS ORDERED: diphenhydrAMINE HCL 50 MG CAPSULE PO PRN (13:54)
[2016-10-02] MEDS ORDERED: guaiFENesin/D-METHORPHAN HB 10 ML UNIT-DOSE CUPS PO PRN (13:54)
[2016-10-02] MEDS ORDERED: MAG HYDROX/AL HYDROX/SIMETH 30 ML UNIT-DOSE CUP PO PRN (13:54)
[2016-10-02] MEDS ORDERED: MAGNESIUM CITRATE 300 ML BOTTLE PO PRN (13:54)
[2016-10-02] MEDS ORDERED: MAGNESIUM HYDROX 2400MG/30ML ORAL SUSPENSION 30 ML CUP PO PRN (13:54)
[2016-10-02] MEDS ORDERED: P-EPHED 60MG/TRIPROLIDI 2.5MG TABLET PO PRN (13:54)
[2016-10-02] MEDS: NICOTINE 21 MG/24 HOURS TOPICAL PATCH TD SCH (18:25)
[2016-10-02] MEDS: THIAMINE HCL 100 MG TABLET (FP) PO SCH (21:30)
[2016-10-02] MEDS: IBUPROFEN 400 MG TABLET (FP) PO PRN (21:31)
[2016-10-02] MEDS: hydrOXYzine PAMOATE 50 MG CAPSULE (FP) PO PRN (21:31)
[2016-10-03] MEDS: NICOTINE 21 MG/24 HOURS TOPICAL PATCH TD SCH (10:06)
[2016-10-03] MEDS: IBUPROFEN 400 MG TABLET (FP) PO PRN (10:06)
[2016-10-03] MEDS: PRENATAL VITAMINS W/ FOLIC ACID TABLET (FP) PO SCH (10:06)
--- NOTE | 2016-10-03 11:34 | HP ---
Psychiatrist Admission - Data Date of interview: 10/03/16 Identifying data: this is the first 5N inpatient rehabilitation admission for this 35 year old male , he is ,a father of one, domiciled and currently employed. Medical History: History of gallstones and fracture of mandibles ( during combat in [place]). Smokes cigarettes 20 a day. Psychiatric History: Patient reports no history of psychaitric hospitalizations , was diagnosed as PTSD and ADD while returning back from his service, was treated with Wellbutrin and Adderall. Reports he was under the psychiatric [facility]PD care ([facility] in [facility]) in 2011, stopped and never got back on psychotropic drugs. Patient denies history of suicide attempts, has insomnia. Physical/Sexual Abuse/Trauma History: Denies history of abuse.Served with [employer] for 8 years, Wounded in combat, traumatized by war memories, reports sometimes he has nightmares and falshbacks. Vital Signs: Vital Signs - 24 hr 10/02/16 10/02/16 10/03/16 11:53 16:45 00:32 Temperature 96.1 F L 97.8 F Pulse Rate 90 88 Respiratory 18 18 16 Rate Blood Pressure 128/79 125/78 10/03/16 03:30 Temperature Pulse Rate Respiratory 16 Rate Blood Pressure Allergies/Adverse Reactions: Allergies Allergy/AdvReac Type Severity Reaction Status Date / Time No Known Allergies Allergy Verified 10/02/16 13:23 Date of last physical exam: 10/02/16 Concur with the findings of this exam: Yes - Substance Abuse/Tx History Hx Alcohol Use: No Hx Substance Use: Yes Substance Use Type: Cocaine ($10-20 daily,started at age 21), Heroin (6-10 bags daily ) Hx Substance Use Treatment: Yes - Admission Criteria Previous failed treatment: Yes Poor recovery environment: Yes Comorbidities: No Lacks judgement: Yes Mental Status Exam - Mental Status Exam Alert and Oriented to: Time, Place, Person Cognitive Function: Good Patient Appearance: Well Groomed Mood: Sad Affect: Appropriate, Mood Congruent Patient Behavior: Appropriate, Cooperative Speech Pattern: Clear, Appropriate Voice Loudness: Normal Thought Process: Intact, Goal Oriented Thought Disorder: Not Present Hallucinations: Denies Suicidal Ideation: Denies Homicidal Ideation: Denies Insight/Judgement: Fair Sleep: Poorly, Difficulty falling asleep Appetite: Fair Muscle strength/Tone: Normal Gait/Station: Normal Psychiatric Findings - Problem List ([place] 1, 2,3) (1) Insomnia Current Visit: No Status: Acute (2) Cocaine dependence Current Visit: No Status: Chronic Qualifiers: Substance use status: uncomplicated Qualified Code(s): F14.20 - Cocaine dependence, uncomplicated (3) Marijuana dependence Current Visit: No Status: Chronic (4) Nicotine dependence Current Visit: No Status: Chronic Qualifiers: Nicotine product type: cigarettes Substance use status: uncomplicated Qualified Code(s): F17.210 - Nicotine dependence, cigarettes, uncomplicated (5) Opioid dependence Current Visit: Yes Status: Acute - Initial Treatment Plan Initial Treatment Plan: will add Belsomra 10 mg po hs, contninue to monitor progress.
[2016-10-03] MEDS: hydrOXYzine PAMOATE 50 MG CAPSULE (FP) PO PRN (13:04)
[2016-10-03] MEDS: ACETAMINOPHEN 325 MG TABLET (FP) PO PRN ×2 (13:05→21:38)
--- NOTE | 2016-10-03 13:18 | PN ---
BHS Progress Note Note: pain in the left upper molar and dental cavity with gingivitis pen vee k 500 mgs po q 6 hrs for 7 days motrin 600 mgs po q6 hrs prn for pain xylocaine viscous 2% 20 mls prn for toothache and oral pain
[2016-10-03] MEDS ORDERED: PENICILLIN V POTASSIUM 500 MG TABLET PO ONE (13:45)
[2016-10-03] MEDS: PENICILLIN V POTASSIUM 500 MG TABLET PO SCH ×2 (17:44→23:28)
[2016-10-03] MEDS: IBUPROFEN 600 MG TABLET (FP) PO PRN (18:20)
[2016-10-03] MEDS: THIAMINE HCL 100 MG TABLET (FP) PO SCH (21:36)
[2016-10-03] MEDS: SUVOREXANT 10 MG TABLET PO SCH (21:38)
[2016-10-03] MEDS: LIDOCAINE VISCOUS 2% ORAL/TOP 20 ML UNIT-DOSE CUP MM PRN (21:38)
[2016-10-04] MEDS: PENICILLIN V POTASSIUM 500 MG TABLET PO SCH ×3 (06:30→17:01)
[2016-10-04] MEDS: PRENATAL VITAMINS W/ FOLIC ACID TABLET (FP) PO SCH (10:13)
[2016-10-04] MEDS: NICOTINE 21 MG/24 HOURS TOPICAL PATCH TD SCH (10:13)
[2016-10-04] MEDS: NICOTINE POLACRILEX 2 MG GUM BUC PRN ×2 (11:57→17:59)
[2016-10-04] MEDS: IBUPROFEN 600 MG TABLET (FP) PO PRN (17:57)
[2016-10-04] MEDS: THIAMINE HCL 100 MG TABLET (FP) PO SCH (21:23)
[2016-10-04] MEDS: SUVOREXANT 10 MG TABLET PO SCH (21:23)
[2016-10-04] MEDS: ACETAMINOPHEN 325 MG TABLET (FP) PO PRN (21:23)
[2016-10-04] MEDS: hydrOXYzine PAMOATE 50 MG CAPSULE (FP) PO PRN (21:23)
[2016-10-05] MEDS: PENICILLIN V POTASSIUM 500 MG TABLET PO SCH ×4 (00:33→17:02)
[2016-10-05] MEDS: ACETAMINOPHEN 325 MG TABLET (FP) PO PRN ×2 (06:31→21:19)
[2016-10-05] MEDS: NICOTINE POLACRILEX 2 MG GUM BUC PRN ×4 (06:32→15:46)
[2016-10-05] MEDS: hydrOXYzine PAMOATE 50 MG CAPSULE (FP) PO PRN ×2 (10:05→21:19)
[2016-10-05] MEDS: NICOTINE 21 MG/24 HOURS TOPICAL PATCH TD SCH (10:05)
[2016-10-05] MEDS: PRENATAL VITAMINS W/ FOLIC ACID TABLET (FP) PO SCH (10:05)
[2016-10-05] MEDS: IBUPROFEN 600 MG TABLET (FP) PO PRN (17:12)
[2016-10-05] MEDS: THIAMINE HCL 100 MG TABLET (FP) PO SCH (21:17)
[2016-10-05] MEDS: SUVOREXANT 10 MG TABLET PO SCH (21:18)
[2016-10-05] MEDS: LIDOCAINE VISCOUS 2% ORAL/TOP 20 ML UNIT-DOSE CUP MM PRN (21:20)
[2016-10-06] MEDS: PENICILLIN V POTASSIUM 500 MG TABLET PO SCH ×2 (00:46→06:41)
[2016-10-06 06:58] VITALS: BP 118/70; PULSE 70; TEMP 97.7
[2016-10-06] MEDS: hydrOXYzine PAMOATE 50 MG CAPSULE (FP) PO PRN (06:58)
--- NOTE | 2016-10-06 11:03 | PN ---
BHS Progress Note Note: patient did not want to complete treatment,signed release ama,psychiatrist alteration inspector notified by nurse
== END 2016-10-06 08:00 | disposition home or self-care (01) | DRG 772 ==
LOC: YASAS 10:59 → Y5N 16:11
PROVIDERS: ADMIT Psychiatry & Neurology Psychiatry; ATTEND Psychiatry & Neurology Psychiatry
PROC: HZ42ZZZ Group Counseling for Substance Abuse Treatment, Cognitive-Behavioral (ICD-10-PCS; principal; 2016-10-06)
DX: F11.23 Opioid dependence with withdrawal (principal); F14.20 Cocaine dependence, uncomplicated; F12.20 Cannabis dependence, uncomplicated; F17.210 Nicotine dependence, cigarettes, uncomplicated; G47.00 Insomnia, unspecified; K02.9 Dental caries, unspecified

== ENCOUNTER 2016-11-22 10:57 | Inpatient (IN) | payer OTHER ==
[2016-11-22 13:48] VITALS: BMI 30.2
--- NOTE | 2016-11-22 16:49 | HP ---
COWS - Scale Resting Pulse: 0= [place] 80 or Below Sweatin= Chills/Flushing Restless Observation: 1= Difficult to Sit Still Pupil Size: 0= Normal to Room Light Bone or Joint Aches: 2= Severe Diffuse Aches Runny Nose/ Eye Tearin= Runny Nose/Eyes GI Upset > 30mins: 3= Vomiting/Diarrhea Tremor Observation: 2= Slight Tremor Visible Yawning Observation: 0= None Anxiety or Irritability: 2=Irritable/Anxious Goose Flesh Skin: 0=Smooth Skin COWS Score: 13 CIWA Score - CIWA Score Nausea/Vomitin-Mild Nausea/No Vomiting Muscle Tremors: 4-Moderate,w/Arms Extend Anxiety: 4-Mod. Anxious/Guarded Agitation: 4-Moderately Restless Paroxysmal Sweats: 1-Minimal Palms Moist Orientation: 0-Oriented Tacttile Disturbances: 0-None Auditory Disturbances: 0-None Visual Disturbances: 0-None Headache: 0-None Present CIWA-Ar Total Score: 14 Admission ROS S - HPI Chief Complaint: WITHDRAWAL SX Allergies/Adverse Reactions: Allergies Allergy/AdvReac Type Severity Reaction Status Date / Time No Known Allergies Allergy Verified 11/22/16 16:55 History of Present Illness: 35 YEARS OLD MALE WITH LONG HISTORY OF OPIATE NICOTINE DEPENDENCE DENIES MEDICAL ISSUE DENIES MENTAL ILLNESS IS ADMITTED TO DETOX Exam Limitations: No Limitations - Ebola screening Have you traveled outside of the country in the last 21 days: No Have you had contact with anyone from an Ebola affected area: No Have you been sick,other than usual withdrawal symptoms: No Do you have a fever: No - Review of Systems Constitutional: Changes in sleep, Weight Stable EENT: reports: No Symptoms Reported Respiratory: reports: No Symptoms reported Cardiac: reports: No Symptoms Reported GI: reports: Nausea, Poor Fluid Intake, Vomiting, Abdominal cramping : reports: No Symptoms Reported Musculoskeletal: reports: Back Pain, Joint Pain, Muscle Pain, Neck Pain Integumentary: reports: No Symptoms Reported Neuro: reports: Tremors Endocrine: reports: No Symptoms Reported Hematology: reports: No Symptoms Reported Psychiatric: reports: Judgement Intact, Mood/Affect Appropiate, Orientated x3 Other Systems: Reviewed and Negative Patient History - Patient Medical History Hx Anemia: No Hx Asthma: No Hx Chronic Obstructive Pulmonary Disease (COPD): No Hx Cancer: No Hx Cardiac Disorders: No Hx Congestive Heart Failure: No Hx Hypertension: No Hx Hypercholesterolemia: No Hx Pacemaker: No HX Cerebrovascular Accident: No Hx Seizures: No Hx Dementia: No Hx Diabetes: No Hx Gastrointestinal Disorders: No Hx Liver Disease: No Hx Genitourinary Disorders: No Hx Sexually Transmitted Disorders: No Hx Renal Disease (ESRD): No Hx Thyroid Disease: No Hx Human Immunodeficiency Virus (HIV): No (negative) Hx Hepatitis C: No (negative) Hx Depression: No Hx Suicide Attempt: No Hx Bipolar Disorder: No Hx Schizophrenia: No - Patient Surgical History Past Surgical History: No Hx Neurologic Surgery: No Hx Cataract Extraction: No Hx Cardiac Surgery: No Hx Lung Surgery: No Hx Breast Surgery: No Hx Breast Biopsy: No Hx Abdominal Surgery: No Hx Appendectomy: No Hx Cholecystectomy: No Hx Genitourinary Surgery: No Hx Orthopedic Surgery: No - PPD History Previous Implant?: Yes Documented Results: Negative w/proof Implanted On Prior [facility] Admission?: Yes Date: 09/29/16 Results: 0 mm PPD to be Administered?: No - Smoking Cessation Smoking history: Current every day smoker Have you smoked in the past 12 months: Yes Aproximately how many cigarettes per day: 10 Hx Chewing Tobacco Use: No Initiated information on smoking cessation: Yes 'Breaking Loose' booklet given: 11/22/16 - Substance & Tx. History Hx Alcohol Use: No Hx Substance Use: Yes Substance Use Type: Cocaine, Opiates, Tranquilizers Hx Substance Use Treatment: Yes (10/02-10/06/16 [facility] Family Disease History - Family Disease History Family Disease History: Heart Disease: Father (), [place]: Grandparent (uncle ), Mother (), Other: Grandparent, Father, Mother Admission Physical Exam S - Vital Signs Vital Signs: Vital Signs - 24 hr 11/22/16 13:46 Temperature 96 F L Pulse Rate 73 Respiratory 20 Rate Blood Pressure 117/82 - Physical General Appearance: Yes: Nourished, Appropriately Dressed, Mild Distress, Tremorous, Irritable, Sweating, Anxious HEENTM: Yes: Hearing grossly Normal, Normal ENT Inspection, Normocephalic, Normal Voice Respiratory: Yes: Chest Non-Tender, Lungs Clear, Normal Breath Sounds, No Respiratory Distress, No Accessory Muscle Use Neck: Yes: Supple, Trachea in good position Breast: Yes: Breasts Symetrical Cardiology: Yes: Regular Rhythm, Regular Rate, S1, S2 Abdominal: Yes: Non Tender, Soft, Increased Bowel Sounds Genitourinary: Yes: Within Normal Limits Back: Yes: Normal Inspection Musculoskeletal: Yes: full range of Motion, Gait Steady, Back pain, Muscle Pain Extremities: Yes: Normal Inspection, Normal Range of Motion, Non-Tender, Tremors Neurological: Yes: Fully Oriented, Alert, Motor Strength 5/5, Normal Mood/Affect , Normal Response Integumentary: Yes: Warm Lymphatic: Yes: Within Normal Limits - Diagnostic (1) Nicotine dependence Current Visit: Yes Status: Acute Qualifiers: Nicotine product type: cigarettes Substance use status: in withdrawal Qualified Code(s): F17.213 - Nicotine dependence, cigarettes, with withdrawal; F17.213 - Nicotine dependence, cigarettes, with withdrawal (2) Opioid dependence with withdrawal Current Visit: Yes Status: Acute (3) Sedative, hypnotic or anxiolytic dependence with withdrawal, uncomplicated Current Visit: Yes Status: Acute Cleared for Admission [facility] - Detox or Rehab [facility] Level of Care: Medically Managed Detox Regimen/Protocol: Methadone/Valium [facility] Breath Alcohol Content Breath Alcohol Content: 0 Urine Drug Screen - Control Is Test Valid: Yes - Results Drug Screen Negative: No Urine Drug Screen Results: KATYA-Cocaine, OPI-Opiates, BZO-Benzodiazepines, TCA- Tricyclic Antidepress
[2016-11-22] MEDS ORDERED: MENTHOL/PHENOL 1 EACH UD MM PRN (17:06)
[2016-11-22] MEDS ORDERED: MAG HYDROX/AL HYDROX/SIMETH 30 ML UNIT-DOSE CUP PO PRN (17:06)
[2016-11-22] MEDS ORDERED: MAGNESIUM HYDROX 2400MG/30ML ORAL SUSPENSION 30 ML CUP PO PRN (17:06)
[2016-11-22] MEDS ORDERED: LOPERAMIDE HCL 2 MG CAPSULE PO PRN (17:06)
[2016-11-22] MEDS ORDERED: NICOTINE POLACRILEX 2 MG GUM BC PRN (17:06)
[2016-11-22] MEDS ORDERED: IBUPROFEN 400 MG TABLET (FP) PO PRN (17:06)
[2016-11-22] MEDS ORDERED: P-EPHED 60MG/TRIPROLIDI 2.5MG TABLET PO PRN (17:06)
[2016-11-22] MEDS ORDERED: guaiFENesin/D-METHORPHAN HB 10 ML UNIT-DOSE CUPS PO PRN (17:06)
[2016-11-22] MEDS ORDERED: ACETAMINOPHEN 325 MG TABLET (FP) PO PRN (17:06)
[2016-11-22] MEDS ORDERED: MAGNESIUM CITRATE 300 ML BOTTLE PO PRN (17:06)
[2016-11-22] MEDS ORDERED: diazePAM 5 MG TABLET PO ONE (18:00)
[2016-11-22] MEDS ORDERED: METHADONE HCL 10 MG TABLET (FOR DETOX USE ONLY) PO ONE ×2 (18:00→23:00)
[2016-11-22] MEDS: diphenhydrAMINE HCL 50 MG CAPSULE PO PRN (22:11)
[2016-11-22] MEDS: THIAMINE HCL 100 MG TABLET (FP) PO SCH (22:11)
[2016-11-22] MEDS: diazePAM 5 MG TABLET PO SCH (22:11)
[2016-11-23 01:52] LABS: URINE APPEARANCE CLEAR; URINE BILIRUBIN NEGATIVE (NEGATIVE); URINE BLOOD NEGATIVE (NEGATIVE); URINE COLOR YELLOW; URINE GLUCOSE (UA) NEGATIVE (NEGATIVE); URINE KETONE NEGATIVE (NEGATIVE); URINE NITRITE NEGATIVE (NEGATIVE); URINE PROTEIN NEGATIVE (NEGATIVE); URINE UROBILINOGEN NEGATIVE mg/dL (0.2-1.0)
[2016-11-23] MEDS: diazePAM 5 MG TABLET PO SCH ×3 (05:26→22:13)
--- NOTE | 2016-11-23 09:26 | EKG ---
Test Reason : Blood Pressure : / mmHG Vent. Rate : 056 BPM Atrial Rate : 056 BPM P-R Int : 154 ms QRS Dur : 088 ms QT Int : 420 ms P-R-T Axes : 040 020 019 degrees QTc Int : 405 ms SINUS BRADYCARDIA WHEN COMPARED WITH ECG OF 27-SEP-2016 12:55, NO SIGNIFICANT CHANGE WAS FOUND Confirmed by ALISHA CORREA MD ([id number]) on 11/23/2016 9:26:20 AM Referred By: Confirmed By:ALISHA CORREA MD
[2016-11-23 09:46] LABS: MCH 30.5 pg (25.7-33.7); MCHC 33.2 g/dl (32.0-35.9); MEAN CELL VOLUME 91.8 fl (80-96); MEAN PLT VOLUME 6.8 fl (7.5-11.1); PLATELET COUNT 368 K/MM3 (134-434); RDW 13.5 % (11.9-15.9); WHITE BLOOD COUNT 7.3 K/mm3 (4.0-10.0)
[2016-11-23] MEDS ORDERED: NICOTINE 14 MG/24 HOURS TOPICAL PATCH TD SCH (10:00)
[2016-11-23] MEDS ORDERED: PRENATAL VITAMINS W/ FOLIC ACID TABLET (FP) PO SCH (10:00)
[2016-11-23] MEDS ORDERED: METHADONE HCL 10 MG TABLET (FOR DETOX USE ONLY) PO SCH (10:00)
[2016-11-23 10:15] LABS: ALBUMIN 3.5 g/dl (3.4-5.0); ALK PHOS 47 U/L (45-117); ANION GAP 5 (8-16); BILIRUBIN,TOTAL 0.5 mg/dL (0.2-1.0); CALCIUM 8.8 mg/dL (8.5-10.1); CO2 28 mmol/L (21-32); CREATININE 0.8 mg/dL (0.7-1.3); GLUCOSE,RANDOM 89 mg/dL (74-106); SGOT/AST 6 U/L (15-37); SGPT/ALT 18 U/L (12-78); TOT PROT 6.1 g/dl (6.4-8.2)
[2016-11-23] MEDS: diazePAM 5 MG TABLET PO PRN ×2 (10:58→20:32)
[2016-11-23 11:00] LABS: URINE LEUK ESTERASE Negative (NEGATIVE)
--- NOTE | 2016-11-23 13:13 | PN ---
S CIWA - CIWA Score Nausea/Vomitin Muscle Tremors: 3 Anxiety: 4-Mod. Anxious/Guarded Agitation: 0-Normal Activity Paroxysmal Sweats: No Perspiration Orientation: 0-Oriented Tacttile Disturbances: 1-Very Mild Itch/Numbness Auditory Disturbances: 3-Moderate Harsh/Frighten Visual Disturbances: 2-Mild Sensitivity Headache: 0-None Present CIWA-Ar Total Score: 15 BHS COWS - Scale Resting Pulse: 1= [place] 81-100 Sweatin= Chills/Flushing Restless Observation: 0= Sits Still Pupil Size: 0= Normal to Room Light Bone or Joint Aches: 2= Severe Diffuse Aches Runny Nose/ Eye Tearin= Nasal Congestion GI Upset > 30mins: 1= Stomach Cramp Tremor Observation of Outstretched Hands: 2= Slight Tremor Visible Yawning Observation: 1= 1-2x During Session Anxiety or Irritability: 2=Irritable/Anxious Goose Flesh Skin: 3=Piloerection COWS Score: 14 S Progress Note (SOAP) Subjective: Fatigue, Tremors, Stomach Cramping, Constipation. Objective: PT. A & O X 3. NO ACUTE DISTRESS. 11/23/16 13:12 Vital Signs Temperature 97.0 F L 11/23/16 10:03 Pulse Rate 83 11/23/16 10:03 Respiratory Rate 18 11/23/16 10:03 Blood Pressure 137/85 11/23/16 10:03 O2 Sat by Pulse Oximetry (%) Laboratory Tests 11/22/16 11/23/16 11/23/16 20:44 07:00 07:00 WBC 7.3 RBC 4.39 Hgb 13.4 Hct 40.3 MCV 91.8 MCH 30.5 MCHC 33.2 RDW 13.5 Plt Count 368 MPV 6.8 L Sodium 141 Potassium 4.1 Chloride 108 H Carbon Dioxide 28 Anion Gap 5 L BUN 10 D Creatinine 0.8 Creat Clearance w eGFR > 60 Random Glucose 89 Calcium 8.8 Total Bilirubin 0.5 AST 6 L D ALT 18 Alkaline Phosphatase 47 Total Protein 6.1 L Albumin 3.5 Urine Color Yellow Urine Appearance Clear Urine pH 5.0 Ur Specific [place] 1.020 Urine Protein Negative Urine Glucose (UA) Negative Urine Ketones Negative Urine Blood Negative Urine Nitrite Negative Urine Bilirubin Negative Urine Urobilinogen Negative Ur Leukocyte Esterase Negative RPR Titer 11/23/16 07:00 WBC RBC Hgb Hct MCV MCH MCHC RDW Plt Count MPV Sodium Potassium Chloride Carbon Dioxide Anion Gap BUN Creatinine Creat Clearance w eGFR Random Glucose Calcium Total Bilirubin AST ALT Alkaline Phosphatase Total Protein Albumin Urine Color Urine Appearance Urine pH Ur Specific [place] Urine Protein Urine Glucose (UA) Urine Ketones Urine Blood Urine Nitrite Urine Bilirubin Urine Urobilinogen Ur Leukocyte Esterase RPR Titer Nonreactive labs noted. Assessment: 11/23/16 13:12 WITHDRAWAL SYMPTOMS. Plan: CONTINUE DETOX.
[2016-11-23] MEDS: BACLOFEN 10 MG TABLET (FP) PO PRN ×2 (13:20→22:15)
[2016-11-23] MEDS: THIAMINE HCL 100 MG TABLET (FP) PO SCH (22:13)
[2016-11-23] MEDS: diphenhydrAMINE HCL 50 MG CAPSULE PO PRN (22:13)
[2016-11-24] MEDS: diazePAM 5 MG TABLET PO PRN (05:44)
[2016-11-24 06:58] VITALS: BP 100/55; PULSE 71; TEMP 97.3
[2016-11-24] MEDS ORDERED: METHADONE HCL 5 MG TABLET (FOR DETOX USE ONLY) PO SCH (10:00)
[2016-11-24] MEDS ORDERED: diazePAM 5 MG TABLET PO SCH (10:00)
--- NOTE | 2016-11-24 14:20 | DS ---
[facility] Detox Discharge Summary Admission Date: 11/22/16 Discharge Date: 11/24/16 - History Present History: Opioid Dependence, Sedative Dependence Additional Comments: PATIENT HAS PERSONAL ISSUE TO DEAL WITH AND DOES NOT WISH TO STAY TO COMPLETE DETOX REGIMEN. RISKS OF LEAVING DETOX UNIT PRIOR TO COMPLETION OF DETOX PROTOCOL DISCUSSED WITH PATIENT. PATIENT ADVISED TO GO IMMEDIATELY TO NEAREST ER SHOULD ANY INTOLERABLE DETOX SYMPTOMS DEVELOP AT ANY TIME. PATIENT LEFT DETOX UNIT IN STABLE MEDICAL CONDITION. Pertinent Past History: Nicotine Dependence. - Physical Exam Results Vital Signs: Vital Signs Temperature 97.3 F L 11/24/16 06:56 Pulse Rate 71 11/24/16 06:56 Respiratory Rate 18 11/24/16 06:56 Blood Pressure 100/55 11/24/16 06:56 O2 Sat by Pulse Oximetry (%) Pertinent Admission Physical Exam Findings: WITHDRAWAL SYMPTOMS. Laboratory Tests 11/22/16 11/23/16 11/23/16 20:44 07:00 07:00 WBC 7.3 RBC 4.39 Hgb 13.4 Hct 40.3 MCV 91.8 MCH 30.5 MCHC 33.2 RDW 13.5 Plt Count 368 MPV 6.8 L Sodium 141 Potassium 4.1 Chloride 108 H Carbon Dioxide 28 Anion Gap 5 L BUN 10 D Creatinine 0.8 Creat Clearance w eGFR > 60 Random Glucose 89 Calcium 8.8 Total Bilirubin 0.5 AST 6 L D ALT 18 Alkaline Phosphatase 47 Total Protein 6.1 L Albumin 3.5 Urine Color Yellow Urine Appearance Clear Urine pH 5.0 Ur Specific [place] 1.020 Urine Protein Negative Urine Glucose (UA) Negative Urine Ketones Negative Urine Blood Negative Urine Nitrite Negative Urine Bilirubin Negative Urine Urobilinogen Negative Ur Leukocyte Esterase Negative RPR Titer 11/23/16 07:00 WBC RBC Hgb Hct MCV MCH MCHC RDW Plt Count MPV Sodium Potassium Chloride Carbon Dioxide Anion Gap BUN Creatinine Creat Clearance w eGFR Random Glucose Calcium Total Bilirubin AST ALT Alkaline Phosphatase Total Protein Albumin Urine Color Urine Appearance Urine pH Ur Specific [place] Urine Protein Urine Glucose (UA) Urine Ketones Urine Blood Urine Nitrite Urine Bilirubin Urine Urobilinogen Ur Leukocyte Esterase RPR Titer Nonreactive LABS NOTED. - Treatment Hospital Course: Detoxed Safely - Medication Discharge Medications: Ambulatory Orders NK [No Known Home Medication] 09/27/16 - Diagnosis (1) Nicotine dependence Status: Chronic Qualifiers: Nicotine product type: cigarettes Substance use status: in withdrawal Qualified Code(s): F17.213 - Nicotine dependence, cigarettes, with withdrawal; F17.213 - Nicotine dependence, cigarettes, with withdrawal (2) Opioid dependence with withdrawal Status: Acute (3) Sedative, hypnotic or anxiolytic dependence with withdrawal, uncomplicated Status: Acute - AMA Did Patient Leave Against Medical Advice: Yes (PT HAD PERSONAL ISSUE AND DID NOT WISH TO STAY TO COMPLETE DETOX REGIMEN.)
[2016-11-26] MEDS ORDERED: diazePAM 5 MG TABLET PO SCH (10:00)
[2016-11-26] MEDS ORDERED: METHADONE HCL 10 MG TABLET (FOR DETOX USE ONLY) PO SCH (10:00)
[2016-11-27] MEDS ORDERED: METHADONE HCL 5 MG TABLET (FOR DETOX USE ONLY) PO SCH (06:00)
== END 2016-11-24 09:14 | disposition left against medical advice (07) | DRG 770 ==
LOC: YASAS 10:57 → Y3N 17:26
PROVIDERS: ADMIT Internal Medicine; ATTEND Internal Medicine
PROC: HZ2ZZZZ Detoxification Services for Substance Abuse Treatment (ICD-10-PCS; principal; 2016-11-22)
DX: F11.23 Opioid dependence with withdrawal (principal); F13.230 Sedative, hypnotic or anxiolytic dependence with withdrawal, uncomplicated; F17.213 Nicotine dependence, cigarettes, with withdrawal
CPT/HCPCS: 36415; 80053; 81003; 85027; 86593; 93005; 93010; J0475

== ENCOUNTER 2017-02-18 10:39 | Inpatient (IN) | payer OTHER ==
[2017-02-18 11:04] VITALS: BMI 30.2
--- NOTE | 2017-02-18 13:04 | HP ---
COWS - Scale Resting Pulse: 1= [place] 81-100 Sweatin=Flushed/Facial Moisture Restless Observation: 3= Extraneous Movement Pupil Size: 2= Moderately Dilated Bone or Joint Aches: 2= Severe Diffuse Aches Runny Nose/ Eye Tearin= Runny Nose/Eyes GI Upset > 30mins: 3= Vomiting/Diarrhea Tremor Observation: 2= Slight Tremor Visible Yawning Observation: 2= >3x During Session Anxiety or Irritability: 2=Irritable/Anxious Goose Flesh Skin: 0=Smooth Skin COWS Score: 21 CIWA Score - CIWA Score Nausea/Vomitin Muscle Tremors: 3 Anxiety: 3 Agitation: 3 Paroxysmal Sweats: 2 Orientation: 0-Oriented Tacttile Disturbances: 2-Mild Itch/Numbness/Burn Auditory Disturbances: 2-Mild Harshness/Frighten Visual Disturbances: 2-Mild Sensitivity Headache: 2-Mild CIWA-Ar Total Score: 22 Admission ROS BHS - HPI Chief Complaint: i need help to stop using heroin,cocaine and alcohol Allergies/Adverse Reactions: Allergies Allergy/AdvReac Type Severity Reaction Status Date / Time No Known Allergies Allergy Verified 02/18/17 13:11 History of Present Illness: this 36 years old male with heroin,alcohol,and cocaine dependence,seekig detox, withdrawal symptom,last detox [facility] 11/22/16 to 11/22/16 insomnia nicotine dependence longest period of sobriety 6 years Exam Limitations: No Limitations - Ebola screening Have you traveled outside of the country in the last 21 days: No Have you had contact with anyone from an Ebola affected area: No Have you been sick,other than usual withdrawal symptoms: No Do you have a fever: No - Review of Systems Constitutional: Chills, Diaphoresis, Loss of Appetite, Malaise, Night Sweats, Changes in sleep, Weakness EENT: reports: Tearing, Nose Congestion Respiratory: reports: No Symptoms reported Cardiac: reports: Palpitations GI: reports: Diarrhea, Nausea, Vomiting, Abdominal cramping : reports: No Symptoms Reported Musculoskeletal: reports: Back Pain, Joint Pain, Muscle Pain, Joint Stiffness Integumentary: reports: Dryness Neuro: reports: Headache, Tremors Endocrine: reports: No Symptoms Reported Hematology: reports: No Symptoms Reported Psychiatric: reports: other (insomnia) Other Systems: Reviewed and Negative Patient History - Patient Medical History Hx Anemia: No Hx Asthma: No Hx Chronic Obstructive Pulmonary Disease (COPD): No Hx Cancer: No Hx Cardiac Disorders: No Hx Congestive Heart Failure: No Hx Hypertension: No Hx Hypercholesterolemia: No Hx Pacemaker: No HX Cerebrovascular Accident: No Hx Seizures: No Hx Dementia: No Hx Diabetes: No Hx Gastrointestinal Disorders: No Hx Liver Disease: No Hx Genitourinary Disorders: No Hx Sexually Transmitted Disorders: No Hx Renal Disease (ESRD): No Hx Thyroid Disease: No Hx Human Immunodeficiency Virus (HIV): No (negative last 11/27) Hx Hepatitis C: No (negative) Hx Depression: No Hx Suicide Attempt: No Hx Bipolar Disorder: No Hx Schizophrenia: No Other Medical History: insomnia,no suicidal,no homicidal - Patient Surgical History Past Surgical History: No Hx Neurologic Surgery: No Hx Cataract Extraction: No Hx Cardiac Surgery: No Hx Lung Surgery: No Hx Breast Surgery: No Hx Breast Biopsy: No Hx Abdominal Surgery: No Hx Appendectomy: No Hx Cholecystectomy: No Hx Genitourinary Surgery: No Hx Section: No Hx Orthopedic Surgery: No Anesthesia Reaction: No - PPD History Previous Implant?: Yes Documented Results: Negative w/proof Implanted On Prior [facility] Admission?: Yes Date: 09/29/16 Results: 0 mm PPD to be Administered?: No - Smoking Cessation Smoking history: Current every day smoker Have you smoked in the past 12 months: Yes Aproximately how many cigarettes per day: 10 Hx Chewing Tobacco Use: No Initiated information on smoking cessation: Yes 'Breaking Loose' booklet given: 02/18/17 - Substance & Tx. History Hx Alcohol Use: Yes Hx Substance Use: Yes Substance Use Type: Alcohol, Cocaine, Heroin Hx Substance Use Treatment: Yes ([facility] 11/22/16 to 11/24/16 not completed) - Substances Abused Heroin Route: Inhalation Frequency: Daily Amount used: 10 bags Age of first use: 34 Date of Last Use: 02/17/17 Alcohol Route: Oral Frequency: Daily Amount used: 1 pint cognac Age of first use: 18 Date of Last Use: 02/17/17 Cocaine Route: Inhalation Frequency: Daily Amount used: 1 gram Age of first use: 21 Date of Last Use: 02/17/17 Family Disease History - Family Disease History Family Disease History: Heart Disease: Father (), [place]: Grandparent (uncle ), Mother (), Other: Grandparent, Father, Mother Admission Physical Exam [facility] - Vital Signs Vital Signs: Vital Signs - 24 hr 02/18/17 11:01 Temperature 99 F Pulse Rate 90 Respiratory 18 Rate Blood Pressure 116/80 - Physical General Appearance: Yes: Moderate Distress, Tremorous, Irritable, Sweating, Anxious HEENTM: Yes: Normocephalic, STEPHEN, Pharynx Normal Respiratory: Yes: Lungs Clear, Normal Breath Sounds, No Respiratory Distress Neck: Yes: Within Normal Limits, Supple, Trachea in good position Breast: Yes: Within Normal Limits Cardiology: Yes: Within Normal Limits, Regular Rhythm, Regular Rate, S1, S2 Abdominal: Yes: Within Normal Limits, Normal Bowel Sounds, Non Tender, Flat, Soft Genitourinary: Yes: Within Normal Limits Back: Yes: Muscle Spasm Musculoskeletal: Yes: full range of Motion, Back pain, Joint Stiffness, Muscle Pain Extremities: Yes: Within Normal Limits, Normal Range of Motion, Tremors Neurological: Yes: air conditioning installer II-XII NML intact, Fully Oriented, Alert, Motor Strength 5/5 Integumentary: Yes: Dry Lymphatic: Yes: Within Normal Limits - Diagnostic (1) Opioid dependence with withdrawal Current Visit: No Status: Acute (2) Cocaine dependence Current Visit: No Status: Chronic Qualifiers: Substance use status: uncomplicated Qualified Code(s): F14.20 - Cocaine dependence, uncomplicated (3) Marijuana dependence Current Visit: No Status: Chronic (4) Nicotine dependence Current Visit: No Status: Chronic Qualifiers: Nicotine product type: cigarettes Substance use status: in withdrawal Qualified Code(s): F17.213 - Nicotine dependence, cigarettes, with withdrawal (5) Cholelithiasis Current Visit: No Status: Acute (6) Insomnia Current Visit: No Status: Acute Cleared for Admission [facility] - Detox or Rehab [facility] Level of Care: Medically Managed Detox Regimen/Protocol: Methadone/Valium [facility] Breath Alcohol Content Breath Alcohol Content: 0 Urine Drug Screen - Results Drug Screen Negative: No Urine Drug Screen Results: KATYA-Cocaine, OPI-Opiates, BZO-Benzodiazepines, MTD- Methadone, OXY-Oxycodone
[2017-02-18] MEDS ORDERED: MAGNESIUM HYDROX 2400MG/30ML ORAL SUSPENSION 30 ML CUP PO PRN (13:16)
[2017-02-18] MEDS ORDERED: P-EPHED 60MG/TRIPROLIDI 2.5MG TABLET PO PRN (13:16)
[2017-02-18] MEDS ORDERED: hydrOXYzine PAMOATE 25 MG CAPSULE (FP) PO PRN (13:16)
[2017-02-18] MEDS ORDERED: MAG HYDROX/AL HYDROX/SIMETH 30 ML UNIT-DOSE CUP PO PRN (13:16)
[2017-02-18] MEDS ORDERED: ACETAMINOPHEN 325 MG TABLET (FP) PO PRN (13:16)
[2017-02-18] MEDS ORDERED: guaiFENesin/D-METHORPHAN HB 10 ML UNIT-DOSE CUPS PO PRN (13:16)
[2017-02-18] MEDS ORDERED: MENTHOL/PHENOL 1 EACH UD MM PRN (13:16)
[2017-02-18] MEDS ORDERED: LOPERAMIDE HCL 2 MG CAPSULE PO PRN (13:16)
[2017-02-18] MEDS ORDERED: IBUPROFEN 400 MG TABLET (FP) PO PRN (13:16)
[2017-02-18] MEDS ORDERED: MAGNESIUM CITRATE 300 ML BOTTLE PO PRN (13:16)
[2017-02-18] MEDS ORDERED: METHADONE HCL 10 MG TABLET (FOR DETOX USE ONLY) PO ONE ×2 (14:15→23:00)
[2017-02-18] MEDS ORDERED: diazePAM 5 MG TABLET PO ONE (14:15)
[2017-02-18] MEDS: diazePAM 5 MG TABLET PO SCH ×2 (15:16→22:08)
[2017-02-18] MEDS: NICOTINE POLACRILEX 2 MG GUM BC PRN (15:16)
--- NOTE | 2017-02-18 15:47 | CONSULT ---
[facility] Psychiatric Consult - Data Date of interview: 02/18/17 Admission source: [facility] Identifying data: Readmission to [facility] for this 36 y/o male seeking detox treatment on for alcohol,heroin and cocaine dependence.Patient is ,a father of one,domiciled and currently employed. Substance Abuse History: Confirmed by patient in this interview.See current [facility] report for details : Smoking history: Current every day smoker. Have you smoked in the past 12 months: Yes. Aproximately how many cigarettes per day: 10. Hx Chewing Tobacco Use: No. Initiated information on smoking cessation: Yes. 'Breaking Loose' booklet given: 02/18/17. - Substance & Tx. History. Hx Alcohol Use: Yes. Hx Substance Use: Yes. Substance Use Type: Alcohol, Cocaine , Heroin. Hx Substance Use Treatment: Yes ([facility] 11/22/16 to 11/24/16 not completed). - Substances Abused. Heroin. Route: Inhalation. Frequency: Daily. Amount used: 10 bags. Age of first use: 34. Date of Last Use: . Alcohol. Route: Oral. Frequency: Daily. Amount used: 1 pint cognac. Age of first use: 18. Date of Last Use: 02/17/17. Cocaine. Route: Inhalation. Frequency: Daily. Amount used: 1 gram. Age of first use: 21. Date of Last Use: 02/17/17 Medical History: Remarkable for a history of gallstones and fracture of mandibles (during combat in [place]). Psychiatric History: Patient denies history of psychiatric hospitalizations.Diagnosed with PTSD and treated in the past with wellbutrin + adderall.Non-adherent to aftercare.Mr Galvan has reportedly dropped out psychiatric OPD care ( in [facility]) in 2011.Off psycotropic medications for months.Patient denies history of suicide attempts. 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 Additional Comment: Urine Drug Screen Results: KATYA-Cocaine, OPI-Opiates, BZO- Benzodiazepines, MTD-Methadone, OXY-Oxycodone.Noted. Mental Status Exam - Mental Status Exam Alert and Oriented to: Time, Place, Person Cognitive Function: Good Patient Appearance: Well Groomed Mood: Withdrawn, Anxious, Hopeful Affect: Mood Congruent, Constricted Patient Behavior: Fatigued, Appropriate, Cooperative Speech Pattern: Clear, Appropriate Voice Loudness: Normal Thought Process: Intact, Goal Oriented Thought Disorder: Not Present Hallucinations: Denies Suicidal Ideation: Denies Homicidal Ideation: Denies Insight/Judgement: Poor Sleep: Poorly, Difficulty falling asleep Appetite: Good Muscle strength/Tone: Normal Gait/Station: Normal Psychiatric Findings - Problem List ([place] 1, 2,3) (1) Opioid dependence with withdrawal Current Visit: No Status: Acute (2) Alcohol dependence Current Visit: Yes Status: Acute (3) Cocaine dependence Current Visit: No Status: Chronic Qualifiers: Substance use status: uncomplicated Qualified Code(s): F14.20 - Cocaine dependence, uncomplicated (4) Nicotine dependence Current Visit: No Status: Chronic Qualifiers: Nicotine product type: cigarettes Substance use status: in withdrawal Qualified Code(s): F17.213 - Nicotine dependence, cigarettes, with withdrawal (5) Substance induced mood disorder Current Visit: Yes Status: Acute (6) Insomnia Current Visit: Yes Status: Acute - Initial Treatment Plan Initial Treatment Plan: Records are revisited.Psychoeducation provided.Sleep hygiene discussed.Detoxification in progress.Seroquel 100 mg po hs.Ordered at patient's specific request (reported history of effectiveness for his insomnia) .Side effects/benefits reviewed with patient.Mr Galvan gave his consent (verbal ) for this careplan.Observation.
[2017-02-18] MEDS: diazePAM 5 MG TABLET PO PRN (17:13)
[2017-02-18 17:20] LABS: URINE APPEARANCE CLEAR; URINE BILIRUBIN NEGATIVE (NEGATIVE); URINE BLOOD NEGATIVE (NEGATIVE); URINE COLOR YELLOW; URINE GLUCOSE (UA) NEGATIVE (NEGATIVE); URINE KETONE NEGATIVE (NEGATIVE); URINE LEUK ESTERASE NEGATIVE (NEGATIVE); URINE NITRITE NEGATIVE (NEGATIVE); URINE PROTEIN NEGATIVE (NEGATIVE); URINE UROBILINOGEN NEGATIVE mg/dL (0.2-1.0)
[2017-02-18] MEDS: QUEtiapine FUMARATE 100 MG TABLET (FP) PO SCH (22:08)
[2017-02-18] MEDS: CYCLOBENZAPRINE HCL 10 MG TABLET (FP) PO PRN (22:08)
[2017-02-18] MEDS: THIAMINE HCL 100 MG TABLET (FP) PO SCH (22:08)
[2017-02-18] MEDS: cloNIDine HCL 0.1 MG TABLET PO SCH (22:08)
[2017-02-19] MEDS: diazePAM 5 MG TABLET PO SCH ×3 (06:33→22:01)
[2017-02-19] MEDS: CYCLOBENZAPRINE HCL 10 MG TABLET (FP) PO PRN ×2 (06:35→22:01)
[2017-02-19] MEDS: diazePAM 5 MG TABLET PO PRN ×3 (08:56→18:15)
[2017-02-19] MEDS ORDERED: ONDANSETRON *ODT* 4 MG TABLET SL PRN (09:20)
[2017-02-19] MEDS ORDERED: METHADONE HCL 10 MG TABLET (FOR DETOX USE ONLY) PO SCH (10:00)
[2017-02-19] MEDS: PRENATAL VITAMINS W/ FOLIC ACID TABLET (FP) PO SCH (10:05)
[2017-02-19] MEDS: cloNIDine HCL 0.1 MG TABLET PO SCH ×2 (10:05→22:01)
--- NOTE | 2017-02-19 10:19 | PN ---
S CIWA - CIWA Score Nausea/Vomitin-Int. Nausea w/Dry Heave Muscle Tremors: 4-Moderate,w/Arms Extend Anxiety: 4-Mod. Anxious/Guarded Agitation: 4-Moderately Restless Paroxysmal Sweats: 1-Minimal Palms Moist Orientation: 0-Oriented Tacttile Disturbances: 3-Moderate Itch/Numb/Burn Auditory Disturbances: 0-None Visual Disturbances: 0-None Headache: 0-None Present CIWA-Ar Total Score: 20 [facility] COWS - Scale Resting Pulse: 1= [place] 81-100 Sweatin= Chills/Flushing Restless Observation: 3= Extraneous Movement Pupil Size: 2= Moderately Dilated Bone or Joint Aches: 4=Acute Joint/Muscle Pain Runny Nose/ Eye Tearin= Nasal Congestion GI Upset > 30mins: 2= Nausea/Diarrhea Tremor Observation of Outstretched Hands: 1= Tremor [place], Not Seen Yawning Observation: 2= >3x During Session Anxiety or Irritability: 2=Irritable/Anxious Goose Flesh Skin: 0=Smooth Skin COWS Score: 19 [facility] Progress Note (SOAP) Subjective: ANXIETY,IRRITABILITY,SWEATS, NAUSEA, LOSS OF APPETITE, INTERMITTENT SLEEP. Objective: 02/19/17 10:15 Vital Signs Temperature 98.1 F 02/19/17 09:50 Pulse Rate 82 02/19/17 09:50 Respiratory Rate 18 02/19/17 09:50 Blood Pressure 98/73 02/19/17 09:50 O2 Sat by Pulse Oximetry (%) Laboratory Last Values Urine Color Yellow 02/18/17 15:00 Urine Appearance Clear 02/18/17 15:00 Urine pH 5.0 (5.0-8.0) 02/18/17 15:00 Ur Specific [place] 1.021 (1.001-1.035) 02/18/17 15:00 Urine Protein Negative (NEGATIVE) 02/18/17 15:00 Urine Glucose (UA) Negative (NEGATIVE) 02/18/17 15:00 Urine Ketones Negative (NEGATIVE) 02/18/17 15:00 Urine Blood Negative (NEGATIVE) 02/18/17 15:00 Urine Nitrite Negative (NEGATIVE) 02/18/17 15:00 Urine Bilirubin Negative (NEGATIVE) 02/18/17 15:00 Urine Urobilinogen Negative mg/dL (0.2-1.0) 02/18/17 15:00 Ur Leukocyte Esterase Negative (NEGATIVE) 02/18/17 15:00 Assessment: 02/19/17 10:15 WITHDRAWAL SX Plan: CONTINUE DETOX ZOFRAN PRN
[2017-02-19 10:22] LABS: ALBUMIN 4.3 g/dl (3.4-5.0); BLOOD UREA NITROGEN 7 mg/dL (7-18); CHLORIDE 104 mmol/L (98-107); GLUCOSE,RANDOM 85 mg/dL (74-106); POTASSIUM 4.5 mmol/L (3.5-5.1); SGPT/ALT 20 U/L (12-78); SODIUM 143 mmol/L (136-145)
[2017-02-19 10:30] LABS: ALK PHOS 62 U/L (45-117); ANION GAP 7 (8-16); BILIRUBIN,TOTAL 0.3 mg/dL (0.2-1.0); CALCIUM 9.7 mg/dL (8.5-10.1); CO2 32 mmol/L (21-32); CREATININE 0.9 mg/dL (0.7-1.3); SGOT/AST 9 U/L (15-37); TOT PROT 7.6 g/dl (6.4-8.2)
[2017-02-19 10:39] LABS: HEMATOCRIT 43.1 % (35.4-49); MCH 30.1 pg (25.7-33.7); MCHC 32.4 g/dl (32.0-35.9); MEAN CELL VOLUME 92.7 fl (80-96); MEAN PLT VOLUME 7.5 fl (7.5-11.1); PLATELET COUNT 405 K/MM3 (134-434); RBC 4.64 M/mm3 (4.00-5.60); RDW 13.6 % (11.9-15.9); WHITE BLOOD COUNT 5.7 K/mm3 (4.0-10.0)
[2017-02-19] MEDS: NICOTINE POLACRILEX 2 MG GUM BC PRN ×2 (13:50→18:15)
--- NOTE | 2017-02-19 15:19 | EKG ---
Test Reason : Blood Pressure : / mmHG Vent. Rate : 075 BPM Atrial Rate : 075 BPM P-R Int : 166 ms QRS Dur : 092 ms QT Int : 396 ms P-R-T Axes : 046 017 023 degrees QTc Int : 442 ms NORMAL SINUS RHYTHM NORMAL ECG WHEN COMPARED WITH ECG OF 22-NOV-2016 19:26, NO SIGNIFICANT CHANGE WAS FOUND Confirmed by Harsha Murray MD ([id number]) on 02/19/2017 3:19:12 PM Referred By: Confirmed By:Harsha Murray MD
[2017-02-19] MEDS: QUEtiapine FUMARATE 100 MG TABLET (FP) PO SCH (22:01)
[2017-02-19] MEDS: THIAMINE HCL 100 MG TABLET (FP) PO SCH (22:01)
[2017-02-20] MEDS: diazePAM 5 MG TABLET PO PRN ×3 (08:31→20:26)
[2017-02-20] MEDS ORDERED: METHADONE HCL 5 MG TABLET (FOR DETOX USE ONLY) PO SCH (10:00)
[2017-02-20] MEDS: PRENATAL VITAMINS W/ FOLIC ACID TABLET (FP) PO SCH (10:02)
[2017-02-20] MEDS: diazePAM 5 MG TABLET PO SCH ×2 (10:02→22:08)
[2017-02-20] MEDS: cloNIDine HCL 0.1 MG TABLET PO SCH ×2 (10:02→22:08)
--- NOTE | 2017-02-20 11:53 | PN ---
[facility] CIWA - CIWA Score Nausea/Vomitin-No Nausea/No Vomiting Muscle Tremors: 3 Anxiety: 4-Mod. Anxious/Guarded Agitation: 3 Paroxysmal Sweats: 1-Minimal Palms Moist Orientation: 0-Oriented Tacttile Disturbances: 3-Moderate Itch/Numb/Burn Auditory Disturbances: 0-None Visual Disturbances: 0-None Headache: 0-None Present CIWA-Ar Total Score: 14 S COWS - Scale Resting Pulse: 1= [place] 81-100 Sweatin= Chills/Flushing Restless Observation: 3= Extraneous Movement Pupil Size: 0= Normal to Room Light Bone or Joint Aches: 2= Severe Diffuse Aches Runny Nose/ Eye Tearin= Nasal Congestion GI Upset > 30mins: 0= None Tremor Observation of Outstretched Hands: 1= Tremor [place], Not Seen Yawning Observation: 2= >3x During Session Anxiety or Irritability: 2=Irritable/Anxious Goose Flesh Skin: 0=Smooth Skin COWS Score: 13 S Progress Note (SOAP) Subjective: NAUSEA RESOLVED. FATIGUE, SWEATS. Objective: 02/20/17 11:52 Vital Signs Temperature 98.3 F 02/20/17 10:03 Pulse Rate 91 H 02/20/17 10:03 Respiratory Rate 18 02/20/17 10:03 Blood Pressure 98/72 02/20/17 10:03 O2 Sat by Pulse Oximetry (%) Laboratory Last Values WBC 5.7 K/mm3 (4.0-10.0) 02/19/17 06:00 RBC 4.64 M/mm3 (4.00-5.60) 02/19/17 06:00 Hgb 14.0 GM/dL (11.7-16.9) 02/19/17 06:00 Hct 43.1 % (35.4-49) 02/19/17 06:00 MCV 92.7 fl (80-96) 02/19/17 06:00 MCH 30.1 pg (25.7-33.7) 02/19/17 06:00 MCHC 32.4 g/dl (32.0-35.9) 02/19/17 06:00 RDW 13.6 % (11.9-15.9) 02/19/17 06:00 Plt Count 405 K/MM3 (134-434) 02/19/17 06:00 MPV 7.5 fl (7.5-11.1) D 02/19/17 06:00 Sodium 143 mmol/L (136-145) 02/19/17 06:00 Potassium 4.5 mmol/L (3.5-5.1) 02/19/17 06:00 Chloride 104 mmol/L (98-107) 02/19/17 06:00 Carbon Dioxide 32 mmol/L (21-32) 02/19/17 06:00 Anion Gap 7 (8-16) L 02/19/17 06:00 BUN 7 mg/dL (7-18) D 02/19/17 06:00 Creatinine 0.9 mg/dL (0.7-1.3) 02/19/17 06:00 Creat Clearance w eGFR > 60 (>60) 02/19/17 06:00 Random Glucose 85 mg/dL (74-106) 02/19/17 06:00 Calcium 9.7 mg/dL (8.5-10.1) 02/19/17 06:00 Total Bilirubin 0.3 mg/dL (0.2-1.0) D 02/19/17 06:00 AST 9 U/L (15-37) L D 02/19/17 06:00 ALT 20 U/L (12-78) 02/19/17 06:00 Alkaline Phosphatase 62 U/L (45-117) D 02/19/17 06:00 Total Protein 7.6 g/dl (6.4-8.2) D 02/19/17 06:00 Albumin 4.3 g/dl (3.4-5.0) D 02/19/17 06:00 Urine Color Yellow 02/18/17 15:00 Urine Appearance Clear 02/18/17 15:00 Urine pH 5.0 (5.0-8.0) 02/18/17 15:00 Ur Specific [place] 1.021 (1.001-1.035) 02/18/17 15:00 Urine Protein Negative (NEGATIVE) 02/18/17 15:00 Urine Glucose (UA) Negative (NEGATIVE) 02/18/17 15:00 Urine Ketones Negative (NEGATIVE) 02/18/17 15:00 Urine Blood Negative (NEGATIVE) 02/18/17 15:00 Urine Nitrite Negative (NEGATIVE) 02/18/17 15:00 Urine Bilirubin Negative (NEGATIVE) 02/18/17 15:00 Urine Urobilinogen Negative mg/dL (0.2-1.0) 02/18/17 15:00 Ur Leukocyte Esterase Negative (NEGATIVE) 02/18/17 15:00 RPR Titer Nonreactive (NONREACTIVE) 02/19/17 06:00 Assessment: 02/20/17 11:52 WITHDRAWAL SX Plan: CONTINUE DETOX
[2017-02-20] MEDS: NICOTINE POLACRILEX 2 MG GUM BC PRN ×2 (12:54→20:27)
[2017-02-20] MEDS: THIAMINE HCL 100 MG TABLET (FP) PO SCH (22:08)
[2017-02-20] MEDS: CYCLOBENZAPRINE HCL 10 MG TABLET (FP) PO PRN (22:08)
[2017-02-20] MEDS: QUEtiapine FUMARATE 100 MG TABLET (FP) PO SCH (22:08)
[2017-02-21] MEDS: diazePAM 5 MG TABLET PO PRN (08:14)
[2017-02-21] MEDS: NICOTINE POLACRILEX 2 MG GUM BC PRN (08:45)
[2017-02-21] MEDS ORDERED: METHADONE HCL 10 MG TABLET (FOR DETOX USE ONLY) PO SCH (10:00)
[2017-02-21] MEDS: cloNIDine HCL 0.1 MG TABLET PO SCH (10:06)
[2017-02-21] MEDS: PRENATAL VITAMINS W/ FOLIC ACID TABLET (FP) PO SCH (10:06)
--- NOTE | 2017-02-21 10:15 | PN ---
[facility] Progress Note (SOAP) Subjective: DECREASED ANXIETY,SWEATS. Objective: 02/21/17 10:29 Vital Signs Temperature 96.1 F L 02/21/17 09:21 Pulse Rate 76 02/21/17 09:21 Respiratory Rate 18 02/21/17 09:21 Blood Pressure 108/77 02/21/17 09:21 O2 Sat by Pulse Oximetry (%) Laboratory Last Values WBC 5.7 K/mm3 (4.0-10.0) 02/19/17 06:00 RBC 4.64 M/mm3 (4.00-5.60) 02/19/17 06:00 Hgb 14.0 GM/dL (11.7-16.9) 02/19/17 06:00 Hct 43.1 % (35.4-49) 02/19/17 06:00 MCV 92.7 fl (80-96) 02/19/17 06:00 MCH 30.1 pg (25.7-33.7) 02/19/17 06:00 MCHC 32.4 g/dl (32.0-35.9) 02/19/17 06:00 RDW 13.6 % (11.9-15.9) 02/19/17 06:00 Plt Count 405 K/MM3 (134-434) 02/19/17 06:00 MPV 7.5 fl (7.5-11.1) D 02/19/17 06:00 Sodium 143 mmol/L (136-145) 02/19/17 06:00 Potassium 4.5 mmol/L (3.5-5.1) 02/19/17 06:00 Chloride 104 mmol/L (98-107) 02/19/17 06:00 Carbon Dioxide 32 mmol/L (21-32) 02/19/17 06:00 Anion Gap 7 (8-16) L 02/19/17 06:00 BUN 7 mg/dL (7-18) D 02/19/17 06:00 Creatinine 0.9 mg/dL (0.7-1.3) 02/19/17 06:00 Creat Clearance w eGFR > 60 (>60) 02/19/17 06:00 Random Glucose 85 mg/dL (74-106) 02/19/17 06:00 Calcium 9.7 mg/dL (8.5-10.1) 02/19/17 06:00 Total Bilirubin 0.3 mg/dL (0.2-1.0) D 02/19/17 06:00 AST 9 U/L (15-37) L D 02/19/17 06:00 ALT 20 U/L (12-78) 02/19/17 06:00 Alkaline Phosphatase 62 U/L (45-117) D 02/19/17 06:00 Total Protein 7.6 g/dl (6.4-8.2) D 02/19/17 06:00 Albumin 4.3 g/dl (3.4-5.0) D 02/19/17 06:00 Urine Color Yellow 02/18/17 15:00 Urine Appearance Clear 02/18/17 15:00 Urine pH 5.0 (5.0-8.0) 02/18/17 15:00 Ur Specific [place] 1.021 (1.001-1.035) 02/18/17 15:00 Urine Protein Negative (NEGATIVE) 02/18/17 15:00 Urine Glucose (UA) Negative (NEGATIVE) 02/18/17 15:00 Urine Ketones Negative (NEGATIVE) 02/18/17 15:00 Urine Blood Negative (NEGATIVE) 02/18/17 15:00 Urine Nitrite Negative (NEGATIVE) 02/18/17 15:00 Urine Bilirubin Negative (NEGATIVE) 02/18/17 15:00 Urine Urobilinogen Negative mg/dL (0.2-1.0) 02/18/17 15:00 Ur Leukocyte Esterase Negative (NEGATIVE) 02/18/17 15:00 RPR Titer Nonreactive (NONREACTIVE) 02/19/17 06:00 Assessment: 02/21/17 10:29 WITHDRAWAL SX Plan: CONTINUE DETOX
[2017-02-21] MEDS: diazePAM 5 MG TABLET PO SCH (11:17)
[2017-02-21 18:30] VITALS: BP 109/75; PULSE 73; TEMP 98
[2017-02-22] MEDS ORDERED: METHADONE HCL 5 MG TABLET (FOR DETOX USE ONLY) PO SCH (06:00)
[2017-02-22] MEDS ORDERED: diazePAM 5 MG TABLET PO SCH (10:00)
[2017-02-22] MEDS ORDERED: METHADONE HCL 10 MG TABLET (FOR DETOX USE ONLY) PO SCH (10:00)
[2017-02-23] MEDS ORDERED: METHADONE HCL 5 MG TABLET (FOR DETOX USE ONLY) PO SCH (06:00)
== END 2017-02-21 17:39 | disposition left against medical advice (07) | DRG 770 ==
LOC: YASAS 10:39 → Y3N 13:30
PROVIDERS: ADMIT Internal Medicine; ATTEND Internal Medicine
PROC: HZ2ZZZZ Detoxification Services for Substance Abuse Treatment (ICD-10-PCS; principal; 2017-02-18)
DX: F11.23 Opioid dependence with withdrawal (principal); F10.230 Alcohol dependence with withdrawal, uncomplicated; F14.20 Cocaine dependence, uncomplicated; F12.20 Cannabis dependence, uncomplicated; F17.213 Nicotine dependence, cigarettes, with withdrawal; F19.24 Other psychoactive substance dependence with psychoactive substance-induced mood disorder; G47.00 Insomnia, unspecified; K80.20 Calculus of gallbladder without cholecystitis without obstruction
CPT/HCPCS: 36415; 80053; 81003; 85027; 86593; 93005; 93010

== ENCOUNTER 2017-04-09 08:14 | Inpatient (IN) | payer OTHER ==
[2017-04-09 08:30] VITALS: BMI 30.2
--- NOTE | 2017-04-09 11:30 | HP ---
COWS - Scale Resting Pulse: 1= [place] 81-100 Sweatin=Flushed/Facial Moisture Restless Observation: 3= Extraneous Movement Pupil Size: 2= Moderately Dilated Bone or Joint Aches: 2= Severe Diffuse Aches Runny Nose/ Eye Tearin= Runny Nose/Eyes GI Upset > 30mins: 3= Vomiting/Diarrhea Tremor Observation: 2= Slight Tremor Visible Yawning Observation: 2= >3x During Session Anxiety or Irritability: 2=Irritable/Anxious Goose Flesh Skin: 0=Smooth Skin COWS Score: 21 CIWA Score - CIWA Score Nausea/Vomitin Muscle Tremors: 3 Anxiety: 3 Agitation: 3 Paroxysmal Sweats: 2 Orientation: 0-Oriented Tacttile Disturbances: 2-Mild Itch/Numbness/Burn Auditory Disturbances: 2-Mild Harshness/Frighten Visual Disturbances: 2-Mild Sensitivity Headache: 2-Mild CIWA-Ar Total Score: 22 Admission ROS [facility] - HPI Chief Complaint: i need help to stop using heroin,alcohol,cocaine marijuana Allergies/Adverse Reactions: Allergies Allergy/AdvReac Type Severity Reaction Status Date / Time No Known Allergies Allergy Verified 04/09/17 08:34 History of Present Illness: this 36 years old male with heroin,alcohol,cocaine and marijuana dependence, seeking detox,withdrawal symptom, last detox 02/18/17 to 02/21/17 nicotine dependence anxiety,depression,insomnia longest period of sobriety 7 years Exam Limitations: No Limitations - Ebola screening Have you traveled outside of the country in the last 21 days: No (N) Have you had contact with anyone from an Ebola affected area: No Have you been sick,other than usual withdrawal symptoms: No Do you have a fever: No - Review of Systems Constitutional: Chills, Loss of Appetite, Malaise, Night Sweats, Changes in sleep EENT: reports: Tearing, Nose Congestion Respiratory: reports: No Symptoms reported Cardiac: reports: No Symptoms Reported GI: reports: Diarrhea, Nausea, Poor Appetite : reports: No Symptoms Reported Musculoskeletal: reports: Back Pain, Joint Pain, Muscle Pain Integumentary: reports: Dryness Neuro: reports: Headache, Tremors Endocrine: reports: No Symptoms Reported Hematology: reports: No Symptoms Reported Psychiatric: reports: Anxious (insomnia), Depressed Other Systems: Reviewed and Negative Patient History - Patient Medical History Hx Anemia: No Hx Asthma: No Hx Chronic Obstructive Pulmonary Disease (COPD): No Hx Cancer: No Hx Cardiac Disorders: No Hx Congestive Heart Failure: No Hx Hypertension: No Hx Hypercholesterolemia: No Hx Pacemaker: No HX Cerebrovascular Accident: No Hx Seizures: No Hx Dementia: No Hx Diabetes: No Hx Gastrointestinal Disorders: No Hx Liver Disease: No Hx Genitourinary Disorders: No Hx Sexually Transmitted Disorders: No Hx Renal Disease (ESRD): No Hx Thyroid Disease: No Hx Human Immunodeficiency Virus (HIV): No (negative last 11/27) Hx Hepatitis C: No (negative) Hx Depression: Yes (anxiety,insomnia) Hx Suicide Attempt: No Hx Bipolar Disorder: No Hx Schizophrenia: No Other Medical History: no suicidal,no homicidal - Patient Surgical History Past Surgical History: No Hx Neurologic Surgery: No Hx Cataract Extraction: No Hx Cardiac Surgery: No Hx Lung Surgery: No Hx Breast Surgery: No Hx Breast Biopsy: No Hx Abdominal Surgery: No Hx Appendectomy: No Hx Cholecystectomy: No Hx Genitourinary Surgery: No Hx Section: No Hx Orthopedic Surgery: No Anesthesia Reaction: No - PPD History Previous Implant?: Yes Documented Results: Negative w/proof Date: 09/29/16 Results: 0 mm PPD to be Administered?: No - Smoking Cessation Smoking history: Current every day smoker Have you smoked in the past 12 months: Yes Aproximately how many cigarettes per day: 20 Hx Chewing Tobacco Use: No Initiated information on smoking cessation: Yes 'Breaking Loose' booklet given: 04/09/17 - Substance & Tx. History Hx Alcohol Use: Yes Hx Substance Use: Yes Substance Use Type: Alcohol, Cocaine, Heroin, Marijuana Hx Substance Use Treatment: Yes ([facility] 02/18/17 to 02/21/17) - Substances Abused Heroin Route: Inhalation Frequency: Daily Amount used: 15-20 bags Age of first use: 34 Date of Last Use: 04/08/17 Cocaine Route: Inhalation Frequency: 1-2 times per week Amount used: 1 gram Age of first use: 21 Date of Last Use: 04/08/17 Non-Rx Methadone Route: Oral Frequency: 1-3 times last 30 days Amount used: 20 mg Age of first use: 36 Date of Last Use: 04/02/17 oxyxodone Route: Oral Frequency: 1-3 times last 30 days Amount used: 30 mg Age of first use: 33 Date of Last Use: 04/04/17 Alcohol Route: Oral Frequency: Daily Amount used: 2 pints of henessy/3 of 16 ozs of beer Age of first use: 15 Date of Last Use: 04/08/17 Family Disease History - Family Disease History Family Disease History: Heart Disease: Father (), [place]: Grandparent (uncle ), Mother ( pharynx), Other: Grandparent, Father, Mother Admission Physical Exam [facility] - Vital Signs Vital Signs: Vital Signs - 24 hr 04/09/17 08:28 Temperature 98.6 F Pulse Rate 88 Respiratory 18 Rate Blood Pressure 133/88 - Physical General Appearance: Yes: Moderate Distress, Tremorous, Irritable, Sweating, Anxious HEENTM: Yes: Normal ENT Inspection, Normocephalic, STEPHEN, Pharynx Normal Respiratory: Yes: Lungs Clear, Normal Breath Sounds, No Respiratory Distress Neck: Yes: Within Normal Limits, Supple, Trachea in good position Breast: Yes: Within Normal Limits Cardiology: Yes: Within Normal Limits, Regular Rhythm, Regular Rate, S1, S2 Abdominal: Yes: Within Normal Limits, Normal Bowel Sounds, Non Tender, Flat, Soft Genitourinary: Yes: Within Normal Limits Back: Yes: Muscle Spasm Musculoskeletal: Yes: full range of Motion, Back pain, Joint Stiffness, Muscle Pain Extremities: Yes: Tremors Neurological: Yes: flame degreaser II-XII NML intact, Fully Oriented, Alert, Motor Strength 5/5 Integumentary: Yes: Dry Lymphatic: Yes: Within Normal Limits - Diagnostic (1) Opioid dependence with withdrawal Current Visit: Yes Status: Acute (2) Alcohol dependence with uncomplicated withdrawal Current Visit: Yes Status: Acute (3) Cholelithiasis Current Visit: No Status: Acute (4) Cocaine dependence Current Visit: Yes Status: Chronic Qualifiers: Substance use status: uncomplicated Qualified Code(s): F14.20 - Cocaine dependence, uncomplicated (5) Marijuana dependence Current Visit: No Status: Chronic (6) Nicotine dependence Current Visit: Yes Status: Chronic Qualifiers: Nicotine product type: cigarettes Substance use status: in withdrawal Qualified Code(s): F17.213 - Nicotine dependence, cigarettes, with withdrawal Cleared for Admission [facility] - Detox or Rehab [facility] Level of Care: Medically Managed Detox Regimen/Protocol: Methadone/Valium S Breath Alcohol Content Breath Alcohol Content: 0 Urine Drug Screen - Results Drug Screen Negative: No Urine Drug Screen Results: KATYA-Cocaine, OPI-Opiates, BZO-Benzodiazepines, MTD- Methadone, OXY-Oxycodone
[2017-04-09] MEDS ORDERED: hydrOXYzine PAMOATE 25 MG CAPSULE (FP) PO PRN (11:43)
[2017-04-09] MEDS ORDERED: ACETAMINOPHEN 325 MG TABLET (FP) PO PRN (11:43)
[2017-04-09] MEDS ORDERED: guaiFENesin/D-METHORPHAN HB 10 ML UNIT-DOSE CUPS PO PRN (11:43)
[2017-04-09] MEDS ORDERED: MAG HYDROX/AL HYDROX/SIMETH 30 ML UNIT-DOSE CUP PO PRN (11:43)
[2017-04-09] MEDS ORDERED: MAGNESIUM CITRATE 300 ML BOTTLE PO PRN (11:43)
[2017-04-09] MEDS ORDERED: P-EPHED 60MG/TRIPROLIDI 2.5MG TABLET PO PRN (11:43)
[2017-04-09] MEDS ORDERED: LOPERAMIDE HCL 2 MG CAPSULE PO PRN (11:43)
[2017-04-09] MEDS ORDERED: MAGNESIUM HYDROX 2400MG/30ML ORAL SUSPENSION 30 ML CUP PO PRN (11:43)
[2017-04-09] MEDS ORDERED: IBUPROFEN 400 MG TABLET (FP) PO PRN (11:43)
[2017-04-09] MEDS ORDERED: MENTHOL/PHENOL 1 EACH UD MM PRN (11:43)
[2017-04-09] MEDS ORDERED: diazePAM 5 MG TABLET PO ONE (11:51)
[2017-04-09] MEDS ORDERED: METHADONE HCL 10 MG TABLET (FOR DETOX USE ONLY) PO ONE ×2 (11:52→23:00)
[2017-04-09] MEDS: cloNIDine HCL 0.1 MG TABLET PO SCH ×2 (12:48→22:22)
[2017-04-09] MEDS: NICOTINE POLACRILEX 2 MG GUM BUC PRN (12:51)
--- NOTE | 2017-04-09 13:36 | CONSULT ---
[facility] Psychiatric Consult - Data Date of interview: 04/09/17 Admission source: [facility] Identifying data: Pt. is a 36 year old male, father of two, and currently unemployed. This is one of multiple admissions for patient. Pt. admitted to for heroin, cocaine, and alcohol. Substance Abuse History: Following information confirmed with Mr. Galvan: Smoking Cessation. Smoking history: Current every day smoker. Have you smoked in the past 12 months: Yes. Aproximately how many cigarettes per day: 20. Hx Chewing Tobacco Use: No. Initiated information on smoking cessation: Yes. ' Breaking Loose' booklet given: 04/09/17. - Substance & Tx. History. Hx Alcohol Use: Yes. Hx Substance Use: Yes. Substance Use Type: Alcohol, Cocaine , Heroin, Marijuana. Hx Substance Use Treatment: Yes ([facility] 02/18/17 to 02/21/17 ). - Substances Abused. Heroin. Route: Inhalation. Frequency: Daily. Amount used: 15-20 bags. Age of first use: 34. Date of Last Use: 04/08/17. * * Cocaine. Route: Inhalation. Frequency: 1-2 times per week. Amount used: 1 gram. Age of first use: 21. Date of Last Use: 04/08/17. Non-Rx Methadone. Route: Oral. Frequency: 1-3 times last 30 days. Amount used: 20 mg. Age of first use: 36. Date of Last Use: 04/02/17. oxyxodone. Route: Oral. Frequency: 1-3 times last 30 days. Amount used: 30 mg. Age of first use: 33. Date of Last Use: 04/04/17. Alcohol. Route: Oral. Frequency: Daily. Amount used: 2 pints of henessy/3 of 16 ozs of beer. Age of first use: 15. Date of Last Use: 04/08/17 Medical History: Denies. Psychiatric History: Pt. denies h/o psychiatric hospitalization. Pt. reports outpatient care provided by the [facility] in [id number]. Reports last seeing a psychiatrist in 2010 and used to be prescribed wellbutrin +adderall. Reports a diagnosis of PTSD. Pt. denies h/o suicide attempt. Physical/Sexual Abuse/Trauma History: Pt. served in the [employer] from 2013- 2011 and completed 2 tours in [place] and was diagnosed and reports being diagnosed with PTSD. Mental Status Exam - Mental Status Exam Alert and Oriented to: Time, Place, Person Cognitive Function: Good Patient Appearance: Well Groomed Mood: Withdrawn, Euthymic Affect: Mood Congruent Patient Behavior: Fatigued Speech Pattern: Clear, Delayed Voice Loudness: Normal Thought Process: Goal Oriented Thought Disorder: Not Present Hallucinations: Denies Suicidal Ideation: Denies Homicidal Ideation: Denies Insight/Judgement: Poor Sleep: Poorly Appetite: Fair Muscle strength/Tone: Normal Gait/Station: Normal Psychiatric Findings - Problem List ([place] 1, 2,3) (1) Opioid dependence with withdrawal Current Visit: Yes Status: Acute (2) Sedative, hypnotic or anxiolytic dependence with withdrawal, uncomplicated Current Visit: Yes Status: Acute (3) Cocaine dependence Current Visit: Yes Status: Chronic Qualifiers: Substance use status: uncomplicated Qualified Code(s): F14.20 - Cocaine dependence, uncomplicated (4) Nicotine dependence Current Visit: Yes Status: Chronic Qualifiers: Nicotine product type: cigarettes Substance use status: in withdrawal Qualified Code(s): F17.213 - Nicotine dependence, cigarettes, with withdrawal (5) Substance induced mood disorder Current Visit: Yes Status: Acute (6) Insomnia Current Visit: Yes Status: Acute (7) Alcohol dependence with uncomplicated withdrawal Current Visit: Yes Status: Acute - Initial Treatment Plan Initial Treatment Plan: Psychoeducation provided. Detoxification in progress. Pt requesting seroquel for sleep. Alternative medicatios offered (trazodone, benadryl, ambien) but patient refused. Pt. reports favorable effect from previously taking seroquel while in detox. Benefits and side effects discussed. Seroquel 50mg qhs ordered. Will continue to monitor.
[2017-04-09] MEDS: diazePAM 5 MG TABLET PO SCH ×2 (14:48→22:21)
[2017-04-09] MEDS: CYCLOBENZAPRINE HCL 10 MG TABLET (FP) PO PRN (14:50)
--- NOTE | 2017-04-09 16:00 | EKG ---
Test Reason : Blood Pressure : / mmHG Vent. Rate : 070 BPM Atrial Rate : 070 BPM P-R Int : 172 ms QRS Dur : 088 ms QT Int : 386 ms P-R-T Axes : 050 015 028 degrees QTc Int : 416 ms NORMAL SINUS RHYTHM NORMAL ECG WHEN COMPARED WITH ECG OF 18-FEB-2017 15:28, NO SIGNIFICANT CHANGE WAS FOUND Confirmed by MD Redding Daniel ([id number]) on 04/09/2017 3:59:54 PM Referred By: Confirmed By:Esteban Redding MD
[2017-04-09] MEDS: diazePAM 5 MG TABLET PO PRN (17:08)
[2017-04-09] MEDS: THIAMINE HCL 100 MG TABLET (FP) PO SCH (22:21)
[2017-04-09] MEDS: QUEtiapine FUMARATE 50 MG TABLET PO SCH (22:23)
[2017-04-09 23:09] LABS: URINE APPEARANCE CLEAR; URINE BILIRUBIN NEGATIVE (NEGATIVE); URINE BLOOD NEGATIVE (NEGATIVE); URINE COLOR YELLOW; URINE GLUCOSE (UA) NEGATIVE (NEGATIVE); URINE KETONE NEGATIVE (NEGATIVE); URINE LEUK ESTERASE NEGATIVE (NEGATIVE); URINE NITRITE NEGATIVE (NEGATIVE); URINE PROTEIN NEGATIVE (NEGATIVE); URINE UROBILINOGEN NEGATIVE mg/dL (0.2-1.0)
[2017-04-10] MEDS: diazePAM 5 MG TABLET PO SCH ×3 (04:59→22:17)
[2017-04-10] MEDS: CYCLOBENZAPRINE HCL 10 MG TABLET (FP) PO PRN (05:00)
[2017-04-10] MEDS ORDERED: METHADONE HCL 10 MG TABLET (FOR DETOX USE ONLY) PO SCH (10:00)
[2017-04-10 10:27] LABS: HEMOGLOBIN 12.8 GM/dL (11.7-16.9); MCH 29.5 pg (25.7-33.7); MCHC 32.1 g/dl (32.0-35.9); MEAN CELL VOLUME 91.8 fl (80-96); MEAN PLT VOLUME 7.4 fl (7.5-11.1); PLATELET COUNT 487 K/MM3 (134-434); RBC 4.35 M/mm3 (4.00-5.60); RDW 13.5 % (11.9-15.9); WHITE BLOOD COUNT 11.4 K/mm3 (4.0-10.0)
[2017-04-10 10:28] LABS: ALBUMIN 4.4 g/dl (3.4-5.0); ALK PHOS 65 U/L (45-117); ANION GAP 5 (8-16); BILIRUBIN,TOTAL 0.2 mg/dL (0.2-1.0); BLOOD UREA NITROGEN 15 mg/dL (7-18); CALCIUM 8.7 mg/dL (8.5-10.1); CHLORIDE 105 mmol/L (98-107); CO2 30 mmol/L (21-32); GLUCOSE,RANDOM 115 mg/dL (74-106); POTASSIUM 3.9 mmol/L (3.5-5.1); SGPT/ALT 12 U/L (12-78); SODIUM 140 mmol/L (136-145); TOT PROT 7.3 g/dl (6.4-8.2)
--- NOTE | 2017-04-10 10:32 | PN ---
[facility] CIWA - CIWA Score Nausea/Vomitin-Mild Nausea/No Vomiting Muscle Tremors: 4-Moderate,w/Arms Extend Anxiety: 4-Mod. Anxious/Guarded Agitation: 4-Moderately Restless Paroxysmal Sweats: 1-Minimal Palms Moist Orientation: 0-Oriented Tacttile Disturbances: 2-Mild Itch/Numbness/Burn Auditory Disturbances: 0-None Visual Disturbances: 0-None Headache: 2-Mild CIWA-Ar Total Score: 18 BHS COWS - Scale Resting Pulse: 0= [place] 80 or Below Sweatin= Chills/Flushing Restless Observation: 3= Extraneous Movement Pupil Size: 0= Normal to Room Light Bone or Joint Aches: 2= Severe Diffuse Aches Runny Nose/ Eye Tearin= Runny Nose/Eyes GI Upset > 30mins: 2= Nausea/Diarrhea Tremor Observation of Outstretched Hands: 2= Slight Tremor Visible Yawning Observation: 2= >3x During Session Anxiety or Irritability: 2=Irritable/Anxious Goose Flesh Skin: 3=Piloerection COWS Score: 19 [facility] Progress Note (SOAP) Subjective: sweat tremor gi distress anxiety restlessness irritable agitation Objective: 04/10/17 10:32 Vital Signs Temperature 97.7 F 04/10/17 09:56 Pulse Rate 70 04/10/17 09:56 Respiratory Rate 18 04/10/17 09:56 Blood Pressure 102/59 04/10/17 09:56 O2 Sat by Pulse Oximetry (%) Laboratory Last Values Urine Color Yellow 04/09/17 21:45 Urine Appearance Clear 04/09/17 21:45 Urine pH 5.0 (5.0-8.0) 04/09/17 21:45 Ur Specific [place] 1.028 (1.001-1.035) 04/09/17 21:45 Urine Protein Negative (NEGATIVE) 04/09/17 21:45 Urine Glucose (UA) Negative (NEGATIVE) 04/09/17 21:45 Urine Ketones Negative (NEGATIVE) 04/09/17 21:45 Urine Blood Negative (NEGATIVE) 04/09/17 21:45 Urine Nitrite Negative (NEGATIVE) 04/09/17 21:45 Urine Bilirubin Negative (NEGATIVE) 04/09/17 21:45 Urine Urobilinogen Negative mg/dL (0.2-1.0) 04/09/17 21:45 Ur Leukocyte Esterase Negative (NEGATIVE) 04/09/17 21:45 HIV 1&2 Antibody Screen Negative 04/09/17 09:50 HIV P24 Antigen Negative 04/09/17 09:50 lab noted Assessment: 04/10/17 10:32 withdrawal sx Plan: continue detox
[2017-04-10 10:34] LABS: SGOT/AST 4 U/L (15-37)
[2017-04-10] MEDS: diazePAM 5 MG TABLET PO PRN ×2 (10:35→17:48)
[2017-04-10] MEDS: PRENATAL VITAMINS W/ FOLIC ACID TABLET (FP) PO SCH (10:36)
[2017-04-10] MEDS: cloNIDine HCL 0.1 MG TABLET PO SCH ×2 (10:37→22:17)
[2017-04-10] MEDS: NICOTINE POLACRILEX 2 MG GUM BUC PRN (17:46)
[2017-04-10] MEDS: QUEtiapine FUMARATE 50 MG TABLET PO SCH (22:17)
[2017-04-10] MEDS: THIAMINE HCL 100 MG TABLET (FP) PO SCH (22:17)
[2017-04-11] MEDS ORDERED: METHADONE HCL 5 MG TABLET (FOR DETOX USE ONLY) PO SCH (10:00)
[2017-04-11] MEDS ORDERED: diazePAM 5 MG TABLET PO SCH (10:00)
[2017-04-11] MEDS: PRENATAL VITAMINS W/ FOLIC ACID TABLET (FP) PO SCH (10:07)
[2017-04-11] MEDS: CYCLOBENZAPRINE HCL 10 MG TABLET (FP) PO PRN (10:07)
[2017-04-11] MEDS: cloNIDine HCL 0.1 MG TABLET PO SCH (10:08)
[2017-04-11] MEDS ORDERED: cloNIDine HCL 0.1 MG TABLET PO PRN (10:25)
--- NOTE | 2017-04-11 10:58 | PN ---
[facility] CIWA - CIWA Score Nausea/Vomitin-Mild Nausea/No Vomiting Muscle Tremors: 4-Moderate,w/Arms Extend Anxiety: 4-Mod. Anxious/Guarded Agitation: 4-Moderately Restless Paroxysmal Sweats: 1-Minimal Palms Moist Orientation: 0-Oriented Tacttile Disturbances: 0-None Auditory Disturbances: 0-None Visual Disturbances: 0-None Headache: 0-None Present CIWA-Ar Total Score: 14 BHS COWS - Scale Resting Pulse: 0= [place] 80 or Below Sweatin= Chills/Flushing Restless Observation: 3= Extraneous Movement Pupil Size: 0= Normal to Room Light Bone or Joint Aches: 2= Severe Diffuse Aches Runny Nose/ Eye Tearin= Runny Nose/Eyes GI Upset > 30mins: 2= Nausea/Diarrhea Tremor Observation of Outstretched Hands: 2= Slight Tremor Visible Yawning Observation: 2= >3x During Session Anxiety or Irritability: 2=Irritable/Anxious Goose Flesh Skin: 0=Smooth Skin COWS Score: 16 S Progress Note (SOAP) Subjective: sweat tremor restlessness GI distress anxiety irritable running nose Objective: 04/11/17 10:57 Vital Signs Temperature 98.1 F 04/11/17 09:50 Pulse Rate 62 04/11/17 09:50 Respiratory Rate 18 04/11/17 09:50 Blood Pressure 106/54 04/11/17 09:50 O2 Sat by Pulse Oximetry (%) Laboratory Last Values WBC 11.4 K/mm3 (4.0-10.0) H D 04/10/17 05:45 RBC 4.35 M/mm3 (4.00-5.60) 04/10/17 05:45 Hgb 12.8 GM/dL (11.7-16.9) 04/10/17 05:45 Hct 40.0 % (35.4-49) 04/10/17 05:45 MCV 91.8 fl (80-96) 04/10/17 05:45 MCH 29.5 pg (25.7-33.7) 04/10/17 05:45 MCHC 32.1 g/dl (32.0-35.9) 04/10/17 05:45 RDW 13.5 % (11.9-15.9) 04/10/17 05:45 Plt Count 487 K/MM3 (134-434) H D 04/10/17 05:45 MPV 7.4 fl (7.5-11.1) L 04/10/17 05:45 Sodium 140 mmol/L (136-145) 04/10/17 05:45 Potassium 3.9 mmol/L (3.5-5.1) 04/10/17 05:45 Chloride 105 mmol/L (98-107) 04/10/17 05:45 Carbon Dioxide 30 mmol/L (21-32) 04/10/17 05:45 Anion Gap 5 (8-16) L 04/10/17 05:45 BUN 15 mg/dL (7-18) D 04/10/17 05:45 Creatinine 1.0 mg/dL (0.7-1.3) 04/10/17 05:45 Creat Clearance w eGFR > 60 (>60) 04/10/17 05:45 Random Glucose 115 mg/dL (74-106) H D 04/10/17 05:45 Calcium 8.7 mg/dL (8.5-10.1) 04/10/17 05:45 Total Bilirubin 0.2 mg/dL (0.2-1.0) D 04/10/17 05:45 AST 4 U/L (15-37) L D 04/10/17 05:45 ALT 12 U/L (12-78) D 04/10/17 05:45 Alkaline Phosphatase 65 U/L (45-117) 04/10/17 05:45 Total Protein 7.3 g/dl (6.4-8.2) 04/10/17 05:45 Albumin 4.4 g/dl (3.4-5.0) 04/10/17 05:45 Urine Color Yellow 04/09/17 21:45 Urine Appearance Clear 04/09/17 21:45 Urine pH 5.0 (5.0-8.0) 04/09/17 21:45 Ur Specific [place] 1.028 (1.001-1.035) 04/09/17 21:45 Urine Protein Negative (NEGATIVE) 04/09/17 21:45 Urine Glucose (UA) Negative (NEGATIVE) 04/09/17 21:45 Urine Ketones Negative (NEGATIVE) 04/09/17 21:45 Urine Blood Negative (NEGATIVE) 04/09/17 21:45 Urine Nitrite Negative (NEGATIVE) 04/09/17 21:45 Urine Bilirubin Negative (NEGATIVE) 04/09/17 21:45 Urine Urobilinogen Negative mg/dL (0.2-1.0) 04/09/17 21:45 Ur Leukocyte Esterase Negative (NEGATIVE) 04/09/17 21:45 RPR Titer Nonreactive (NONREACTIVE) 04/10/17 05:45 HIV 1&2 Antibody Screen Negative 04/09/17 09:50 HIV P24 Antigen Negative 04/09/17 09:50 lab noted Assessment: 04/11/17 10:58 withdrawal sx Plan: continue detox
[2017-04-11] MEDS: NICOTINE POLACRILEX 2 MG GUM BUC PRN ×2 (14:33→17:13)
[2017-04-11] MEDS: diazePAM 5 MG TABLET PO PRN (14:33)
[2017-04-11 18:38] VITALS: BP 136/82; PULSE 78; TEMP 97.9
--- NOTE | 2017-04-11 21:11 | PN ---
[facility] Progress Note Note: CLIENT REQUESTS TO SIGN OUT AMA. STATES HE NEEDS TO GO TO WORK IN THE MORNING. CLIENT WAS SEEN DISCUSSED WITH HIM ABOUT THE RISKS OF ABRUPTING TXMENT. CLIENT VERBALIZED UNDERSTANDING. THIS IS CLIENT 3 CONSECUTIVE ADMISSION WHERE HE HAS SIGNED OUT AMA. CLIENT IS A/O X3 NAD VSS BP 116/65 P 76 R 16 T 98.1
--- NOTE | 2017-04-11 21:13 | DS ---
[facility] Detox Discharge Summary Admission Date: 04/09/17 Discharge Date: 04/11/17 - History Present History: Alcohol Dependence, Cocaine Dependence, Opioid Dependence, Sedative Dependence Pertinent Past History: DENIES - Physical Exam Results Vital Signs: Vital Signs Temperature 97.9 F 04/11/17 18:36 Pulse Rate 78 04/11/17 18:36 Respiratory Rate 16 04/11/17 18:36 Blood Pressure 136/82 04/11/17 18:36 O2 Sat by Pulse Oximetry (%) - Treatment Hospital Course: Discharged Condition Good - Medication Discharge Medications: Ambulatory Orders NK [No Known Home Medication] 04/09/17 - Diagnosis (1) Alcohol dependence with uncomplicated withdrawal Current Visit: Yes Status: Acute (2) Insomnia Current Visit: Yes Status: Acute (3) Opioid dependence with withdrawal Current Visit: Yes Status: Acute (4) Sedative, hypnotic or anxiolytic dependence with withdrawal, uncomplicated Current Visit: Yes Status: Acute (5) Substance induced mood disorder Current Visit: Yes Status: Acute (6) Cocaine dependence Current Visit: Yes Status: Chronic Qualifiers: Substance use status: uncomplicated Qualified Code(s): F14.20 - Cocaine dependence, uncomplicated (7) Nicotine dependence Current Visit: Yes Status: Chronic Qualifiers: Nicotine product type: cigarettes Substance use status: in withdrawal Qualified Code(s): F17.213 - Nicotine dependence, cigarettes, with withdrawal - AMA Did Patient Leave Against Medical Advice: Yes
[2017-04-13] MEDS ORDERED: METHADONE HCL 10 MG TABLET (FOR DETOX USE ONLY) PO SCH (10:00)
[2017-04-13] MEDS ORDERED: diazePAM 5 MG TABLET PO SCH (10:00)
[2017-04-14] MEDS ORDERED: METHADONE HCL 5 MG TABLET (FOR DETOX USE ONLY) PO SCH (06:00)
== END 2017-04-11 21:25 | disposition left against medical advice (07) | DRG 770 ==
LOC: YASAS 08:14 → Y6N 11:29
PROVIDERS: ADMIT Internal Medicine; ATTEND Internal Medicine
PROC: HZ2ZZZZ Detoxification Services for Substance Abuse Treatment (ICD-10-PCS; principal; 2017-04-09)
DX: F11.23 Opioid dependence with withdrawal (principal); F10.230 Alcohol dependence with withdrawal, uncomplicated; F13.230 Sedative, hypnotic or anxiolytic dependence with withdrawal, uncomplicated; F14.20 Cocaine dependence, uncomplicated; F17.213 Nicotine dependence, cigarettes, with withdrawal; G47.00 Insomnia, unspecified
CPT/HCPCS: 36415; 80053; 81003; 85027; 86593; 87389; 93005; 93010; J0735

== ENCOUNTER 2017-06-07 20:02 | Inpatient (IN) | payer OTHER ==
[2017-06-07 21:58] VITALS: BMI 30.7
[2017-06-07] MEDS ORDERED: MELATONIN 5 MG TABLETS PO PRN (22:00)
--- NOTE | 2017-06-07 22:17 | HP ---
COWS - Scale Resting Pulse: 0= [place] 80 or Below Sweatin=Flushed/Facial Moisture Restless Observation: 1= Difficult to Sit Still Pupil Size: 1= Pupils >than Normal Bone or Joint Aches: 2= Severe Diffuse Aches Runny Nose/ Eye Tearin= Runny Nose/Eyes GI Upset > 30mins: 2= Nausea/Diarrhea Tremor Observation: 2= Slight Tremor Visible Yawning Observation: 1= 1-2x During Session Anxiety or Irritability: 2=Irritable/Anxious Goose Flesh Skin: 3=Piloerection COWS Score: 18 CIWA Score - CIWA Score Nausea/Vomitin Muscle Tremors: 2 Anxiety: 2 Agitation: 2 Paroxysmal Sweats: 2 Orientation: 0-Oriented Tacttile Disturbances: 2-Mild Itch/Numbness/Burn Auditory Disturbances: 1-Very Mild Visual Disturbances: 2-Mild Sensitivity Headache: 2-Mild CIWA-Ar Total Score: 17 Admission ROS BHS - HPI Chief Complaint: WITHDRAWAL SYMPTOMS Allergies/Adverse Reactions: Allergies Allergy/AdvReac Type Severity Reaction Status Date / Time No Known Allergies Allergy Verified 04/09/17 08:34 History of Present Illness: 36 Y.O. MAN WITH A HISTORY OF HEROIN AND ALCOHOL DEPENDENCE IS HERE SEEKING DETOX. HE HAS HAD 6 ADMISSIONS IN THE LAST YEAR AND HAS LEFT A EACH TIME. HE WAS LAST HERE ON 04/2017. LONGEST PERIOD CLEAN HAS BEEN 6 YEARS. Exam Limitations: No Limitations - Ebola screening Have you been sick,other than usual withdrawal symptoms: No - Review of Systems Constitutional: Chills, Loss of Appetite, Changes in sleep, Unintentional Wgt. Loss EENT: reports: Tearing, Nose Congestion Respiratory: reports: Shortness of Breath Cardiac: reports: No Symptoms Reported GI: reports: Diarrhea, Abdominal cramping : reports: No Symptoms Reported Musculoskeletal: reports: Joint Pain Integumentary: reports: No Symptoms Reported Neuro: reports: Tingling Endocrine: reports: No Symptoms Reported Hematology: reports: Anemia (LOGAN) Psychiatric: reports: Anxious Other Systems: Reviewed and Negative Patient History - Patient Medical History Hx Anemia: No Hx Asthma: No Hx Chronic Obstructive Pulmonary Disease (COPD): No Hx Cancer: No Hx Cardiac Disorders: No Hx Congestive Heart Failure: No Hx Hypertension: No Hx Hypercholesterolemia: No Hx Pacemaker: No HX Cerebrovascular Accident: No Hx Seizures: No Hx Dementia: No Hx Diabetes: No Hx Gastrointestinal Disorders: No Hx Liver Disease: No Hx Genitourinary Disorders: No Hx Sexually Transmitted Disorders: No Hx Renal Disease (ESRD): No Hx Thyroid Disease: No Hx Human Immunodeficiency Virus (HIV): No (negative last 11/27) Hx Hepatitis C: No (negative) Hx Depression: Yes (anxiety,insomnia) Hx Suicide Attempt: No Hx Bipolar Disorder: No Hx Schizophrenia: No - Patient Surgical History Past Surgical History: No Hx Neurologic Surgery: No Hx Cataract Extraction: No Hx Cardiac Surgery: No Hx Lung Surgery: No Hx Breast Surgery: No Hx Breast Biopsy: No Hx Abdominal Surgery: No Hx Appendectomy: No Hx Cholecystectomy: No Hx Genitourinary Surgery: No Hx Section: No Hx Orthopedic Surgery: No Anesthesia Reaction: No - PPD History Previous Implant?: Yes Documented Results: Negative w/proof Implanted On Prior [facility] Admission?: Yes Date: 09/29/16 Results: 0 mm PPD to be Administered?: No - Reproductive History Patient is a Female of Child Bearing Age (11 -55 yrs old): No - Smoking Cessation Smoking history: Current every day smoker Have you smoked in the past 12 months: Yes Aproximately how many cigarettes per day: 20 Hx Chewing Tobacco Use: No Initiated information on smoking cessation: Yes 'Breaking Loose' booklet given: 06/07/17 - Substance & Tx. History Hx Alcohol Use: Yes Hx Substance Use: Yes Substance Use Type: Alcohol, Heroin Hx Substance Use Treatment: Yes (DETOX: 2018) - Substances Abused Heroin Route: Inhalation Frequency: Daily Amount used: 15 BAGS Age of first use: 34 Date of Last Use: 06/06/17 Alcohol Route: Oral Frequency: Daily Amount used: 6 PACK OF BEER Age of first use: 21 Date of Last Use: 06/05/17 Family Disease History - Family Disease History Family Disease History: Heart Disease: Father (), [place]: Grandparent (uncle ), Mother ( pharynx), Other: Grandparent, Father, Mother Admission Physical Exam BHS - Vital Signs Vital Signs: Vital Signs - 24 hr 06/07/17 21:57 Temperature 96.9 F L Pulse Rate 76 Respiratory 18 Rate Blood Pressure 134/90 - Physical General Appearance: Yes: Nourished, Anxious HEENTM: Yes: Hearing grossly Normal, Normal ENT Inspection, Normocephalic, Normal Voice Respiratory: Yes: Chest Non-Tender, Lungs Clear, Normal Breath Sounds, No Respiratory Distress, No Accessory Muscle Use Neck: Yes: No masses,lesions,Nodules, Trachea in good position Breast: Yes: Breast Exam Deferred Cardiology: Yes: Regular Rhythm, Regular Rate Abdominal: Yes: Normal Bowel Sounds, Non Tender, Flat Genitourinary: Yes: Within Normal Limits Back: Yes: Normal Inspection Musculoskeletal: Yes: full range of Motion, Gait Steady Extremities: Yes: Normal Capillary Refill, Normal Inspection, Normal Range of Motion, Non-Tender Neurological: Yes: Fully Oriented, Alert, Normal Mood/Affect, Normal Response Integumentary: Yes: Normal Color, Dry, Warm Lymphatic: Yes: Within Normal Limits - Diagnostic (1) Alcohol dependence with uncomplicated withdrawal Current Visit: Yes Status: Acute (2) Opioid dependence with withdrawal Current Visit: Yes Status: Acute (3) Cocaine dependence Current Visit: Yes Status: Acute Qualifiers: Substance use status: uncomplicated Qualified Code(s): F14.20 - Cocaine dependence, uncomplicated (4) Nicotine dependence Current Visit: Yes Status: Chronic Qualifiers: Nicotine product type: cigarettes Substance use status: in withdrawal Qualified Code(s): F17.213 - Nicotine dependence, cigarettes, with withdrawal Cleared for Admission [facility] - Detox or Rehab [facility] Level of Care: Medically Managed Detox Regimen/Protocol: Methadone/Valium S Breath Alcohol Content Breath Alcohol Content: 0 Urine Drug Screen - Results Drug Screen Negative: No Urine Drug Screen Results: KATYA-Cocaine, OPI-Opiates, BZO-Benzodiazepines, MTD- Methadone
[2017-06-07] MEDS ORDERED: MAG HYDROX/AL HYDROX/SIMETH 30 ML UNIT-DOSE CUP PO PRN (22:38)
[2017-06-07] MEDS ORDERED: MAGNESIUM CITRATE 300 ML BOTTLE PO PRN (22:38)
[2017-06-07] MEDS ORDERED: guaiFENesin/D-METHORPHAN HB 10 ML UNIT-DOSE CUPS PO PRN (22:38)
[2017-06-07] MEDS ORDERED: LOPERAMIDE HCL 2 MG CAPSULE PO PRN (22:38)
[2017-06-07] MEDS ORDERED: IBUPROFEN 400 MG TABLET (FP) PO PRN (22:38)
[2017-06-07] MEDS ORDERED: MENTHOL/PHENOL 1 EACH UD MM PRN (22:38)
[2017-06-07] MEDS ORDERED: P-EPHED 60MG/TRIPROLIDI 2.5MG TABLET PO PRN (22:38)
[2017-06-07] MEDS ORDERED: ACETAMINOPHEN 325 MG TABLET (FP) PO PRN (22:38)
[2017-06-07] MEDS ORDERED: MAGNESIUM HYDROX 2400MG/30ML ORAL SUSPENSION 30 ML CUP PO PRN (22:38)
[2017-06-07] MEDS ORDERED: hydrOXYzine PAMOATE 50 MG CAPSULE (FP) PO PRN (22:38)
[2017-06-08] MEDS ORDERED: METHADONE HCL 10 MG TABLET (FOR DETOX USE ONLY) PO ONE ×3 (00:01→23:00)
[2017-06-08] MEDS ORDERED: diazePAM 5 MG TABLET PO ONE (00:01)
[2017-06-08] MEDS ORDERED: diazePAM 5 MG TABLET PO PRN (00:01)
[2017-06-08] MEDS: diazePAM 5 MG TABLET PO SCH ×2 (05:48→14:35)
[2017-06-08] MEDS: NICOTINE POLACRILEX 2 MG GUM BC PRN ×3 (05:50→13:47)
[2017-06-08] MEDS ORDERED: PRENATAL VITAMINS W/ FOLIC ACID TABLET (FP) PO SCH (10:00)
[2017-06-08 10:24] LABS: HEMATOCRIT 37.6 % (35.4-49); HEMOGLOBIN 12.9 GM/dL (11.7-16.9); MCH 31.4 pg (25.7-33.7); MCHC 34.3 g/dl (32.0-35.9); MEAN CELL VOLUME 91.4 fl (80-96); MEAN PLT VOLUME 6.6 fl (7.5-11.1); PLATELET COUNT 477 K/MM3 (134-434); RBC 4.12 M/mm3 (4.00-5.60); RDW 13.4 % (11.9-15.9); WHITE BLOOD COUNT 7.6 K/mm3 (4.0-10.0)
[2017-06-08 10:38] LABS: ALBUMIN 4.1 g/dl (3.4-5.0); ANION GAP 2 (8-16); BLOOD UREA NITROGEN 10 mg/dL (7-18); CALCIUM 8.9 mg/dL (8.5-10.1); CHLORIDE 105 mmol/L (98-107); CO2 34 mmol/L (21-32); GLUCOSE,RANDOM 100 mg/dL (74-106); POTASSIUM 4.1 mmol/L (3.5-5.1); SODIUM 141 mmol/L (136-145)
[2017-06-08 10:48] LABS: ALK PHOS 59 U/L (45-117); BILIRUBIN,TOTAL 0.3 mg/dL (0.2-1.0); CREATININE 0.9 mg/dL (0.7-1.3); SGOT/AST 10 U/L (15-37); SGPT/ALT 17 U/L (12-78); TOT PROT 7.2 g/dl (6.4-8.2)
--- NOTE | 2017-06-08 11:36 | EKG ---
Test Reason : Blood Pressure : / mmHG Vent. Rate : 072 BPM Atrial Rate : 072 BPM P-R Int : 166 ms QRS Dur : 094 ms QT Int : 378 ms P-R-T Axes : 042 017 027 degrees QTc Int : 413 ms NORMAL SINUS RHYTHM NORMAL ECG WHEN COMPARED WITH ECG OF 09-APR-2017 12:18, NO SIGNIFICANT CHANGE WAS FOUND Confirmed by ALEXANDRA LESTER MD ([id number]) on 06/08/2017 11:36:18 AM Referred By: Harvey Trejo Confirmed By:ALEXANDRA LESTER MD
--- NOTE | 2017-06-08 14:13 | PN ---
[facility] CIWA - CIWA Score Nausea/Vomitin-No Nausea/No Vomiting Muscle Tremors: 3 Anxiety: 4-Mod. Anxious/Guarded Agitation: 2 Paroxysmal Sweats: 3 Orientation: 0-Oriented Tacttile Disturbances: 2-Mild Itch/Numbness/Burn Auditory Disturbances: 1-Very Mild Visual Disturbances: 2-Mild Sensitivity Headache: 0-None Present CIWA-Ar Total Score: 17 BHS COWS - Scale Resting Pulse: 0= [place] 80 or Below Sweatin= Chills/Flushing Restless Observation: 1= Difficult to Sit Still Pupil Size: 0= Normal to Room Light Bone or Joint Aches: 2= Severe Diffuse Aches Runny Nose/ Eye Tearin= Runny Nose/Eyes GI Upset > 30mins: 0= None Tremor Observation of Outstretched Hands: 0= None Yawning Observation: 1= 1-2x During Session Anxiety or Irritability: 2=Irritable/Anxious Goose Flesh Skin: 3=Piloerection COWS Score: 12 S Progress Note (SOAP) Subjective: Tremors, Body Aches, Sweating. Objective: PATIENT A & O X 3, OBSERVED AMBULATING ON UNIT. NO ACUTE DISTRESS. 06/08/17 14:11 Vital Signs Temperature 97.6 F 06/08/17 10:00 Pulse Rate 68 06/08/17 10:00 Respiratory Rate 18 06/08/17 10:00 Blood Pressure 126/71 06/08/17 10:00 O2 Sat by Pulse Oximetry (%) Laboratory Tests 06/08/17 06/08/17 06/08/17 07:40 07:40 07:40 WBC 7.6 D RBC 4.12 Hgb 12.9 Hct 37.6 MCV 91.4 MCH 31.4 MCHC 34.3 RDW 13.4 Plt Count 477 H MPV 6.6 L D Sodium 141 Potassium 4.1 Chloride 105 Carbon Dioxide 34 H Anion Gap 2 L BUN 10 D Creatinine 0.9 Creat Clearance w eGFR > 60 Random Glucose 100 Calcium 8.9 Total Bilirubin 0.3 D AST 10 L D ALT 17 D Alkaline Phosphatase 59 Total Protein 7.2 Albumin 4.1 RPR Titer Nonreactive LABS NOTED. UA RESULTS PENDING. 06/08/17 14:16 Assessment: 06/08/17 14:13 WITHDRAWAL SYMPTOMS. Plan: CONTINUE DETOX. INCREASE DAILY PO FLUID INTAKE.
[2017-06-08 14:26] VITALS: BP 112/69; PULSE 67; TEMP 96.6
[2017-06-08 15:18] LABS: URINE APPEARANCE TURBID; URINE BILIRUBIN NEGATIVE (<2.0 mg/dL); URINE BLOOD NEGATIVE (NEGATIVE); URINE GLUCOSE (UA) NEGATIVE (NEGATIVE); URINE KETONE NEGATIVE (NEGATIVE); URINE LEUK ESTERASE NEGATIVE (NEGATIVE); URINE NITRITE NEGATIVE (NEGATIVE); URINE PROTEIN NEGATIVE (NEGATIVE); URINE UROBILINOGEN NEGATIVE mg/dL (0.2-1.0)
[2017-06-08 15:25] LABS: URINE COLOR YELLOW
--- NOTE | 2017-06-08 16:24 | DS ---
[facility] Detox Discharge Summary Admission Date: 06/07/17 Discharge Date: 06/08/17 - History Present History: Alcohol Dependence, Cocaine Dependence, Opioid Dependence Additional Comments: PATIENT DOES NOT WISH TO STAY TO COMPLETE DETOX REGIMEN. RISKS OF LEAVING DETOX UNIT AGAINST MEDICAL ADVICE AND PRIOR TO COMPLETION OF DETOX REGIMEN EXPLAINED TO PATIENT. PATIENT ADVISED TO GO IMMEDIATELY TO NEAREST ER SHOULD ANY INTOLERABLE DETOX SYMPTOMS DEVELOP AT ANY TIME. PATIENT LEFT DETOX UNIT IN STABLE MEDICAL CONDITION. Pertinent Past History: Depression, Nicotine Dependence. - Physical Exam Results Vital Signs: Vital Signs Temperature 96.6 F L 06/08/17 14:25 Pulse Rate 67 06/08/17 14:25 Respiratory Rate 18 06/08/17 14:25 Blood Pressure 112/69 06/08/17 14:25 O2 Sat by Pulse Oximetry (%) Pertinent Admission Physical Exam Findings: WITHDRAWAL SYMPTOMS. Laboratory Tests 06/08/17 06/08/17 06/08/17 07:40 07:40 07:40 WBC 7.6 D RBC 4.12 Hgb 12.9 Hct 37.6 MCV 91.4 MCH 31.4 MCHC 34.3 RDW 13.4 Plt Count 477 H MPV 6.6 L D Sodium 141 Potassium 4.1 Chloride 105 Carbon Dioxide 34 H Anion Gap 2 L BUN 10 D Creatinine 0.9 Creat Clearance w eGFR > 60 Random Glucose 100 Calcium 8.9 Total Bilirubin 0.3 D AST 10 L D ALT 17 D Alkaline Phosphatase 59 Total Protein 7.2 Albumin 4.1 Urine Color Urine Appearance Urine pH Ur Specific [place] Urine Protein Urine Glucose (UA) Urine Ketones Urine Blood Urine Nitrite Urine Bilirubin Urine Urobilinogen Ur Leukocyte Esterase RPR Titer Nonreactive 06/08/17 10:25 WBC RBC Hgb Hct MCV MCH MCHC RDW Plt Count MPV Sodium Potassium Chloride Carbon Dioxide Anion Gap BUN Creatinine Creat Clearance w eGFR Random Glucose Calcium Total Bilirubin AST ALT Alkaline Phosphatase Total Protein Albumin Urine Color Yellow Urine Appearance Turbid Urine pH 5.0 Ur Specific [place] 1.027 Urine Protein Negative Urine Glucose (UA) Negative Urine Ketones Negative Urine Blood Negative Urine Nitrite Negative Urine Bilirubin Negative Urine Urobilinogen Negative Ur Leukocyte Esterase Negative RPR Titer LABS NOTED. - Treatment Hospital Course: Detoxed Safely - Medication Discharge Medications: Ambulatory Orders NK [No Known Home Medication] 04/09/17 - Diagnosis (1) Alcohol dependence with uncomplicated withdrawal Current Visit: Yes Status: Acute (2) Cocaine dependence Current Visit: Yes Status: Acute Qualifiers: Substance use status: uncomplicated Qualified Code(s): F14.20 - Cocaine dependence, uncomplicated (3) Opioid dependence with withdrawal Current Visit: Yes Status: Acute (4) Nicotine dependence Current Visit: Yes Status: Chronic Qualifiers: Nicotine product type: cigarettes Substance use status: in withdrawal Qualified Code(s): F17.213 - Nicotine dependence, cigarettes, with withdrawal - AMA Did Patient Leave Against Medical Advice: Yes (PATIENT DID NOT WISH TO STAY TO COMPLETE DETOX REGIMEN.)
[2017-06-08] MEDS ORDERED: THIAMINE HCL 100 MG TABLET (FP) PO SCH (22:00)
[2017-06-09] MEDS ORDERED: METHADONE HCL 10 MG TABLET (FOR DETOX USE ONLY) PO SCH (10:00)
[2017-06-10] MEDS ORDERED: METHADONE HCL 5 MG TABLET (FOR DETOX USE ONLY) PO SCH (10:00)
[2017-06-10] MEDS ORDERED: diazePAM 5 MG TABLET PO SCH (10:00)
[2017-06-12] MEDS ORDERED: diazePAM 5 MG TABLET PO SCH (10:00)
[2017-06-12] MEDS ORDERED: METHADONE HCL 10 MG TABLET (FOR DETOX USE ONLY) PO SCH (10:00)
[2017-06-13] MEDS ORDERED: METHADONE HCL 5 MG TABLET (FOR DETOX USE ONLY) PO SCH (06:00)
== END 2017-06-08 16:30 | disposition left against medical advice (07) | DRG 770 ==
LOC: YASAS 20:02 → Y3N 23:17
PROVIDERS: ADMIT Internal Medicine; ATTEND Internal Medicine
PROC: HZ2ZZZZ Detoxification Services for Substance Abuse Treatment (ICD-10-PCS; principal; 2017-06-07)
DX: F11.23 Opioid dependence with withdrawal (principal); F10.230 Alcohol dependence with withdrawal, uncomplicated; F14.20 Cocaine dependence, uncomplicated; F17.213 Nicotine dependence, cigarettes, with withdrawal
CPT/HCPCS: 36415; 80053; 81003; 85027; 86593; 93005; 93010